=== PATIENT | female | born 2005 | race Caucasian/White ===

== ENCOUNTER 2023-01-17 00:03 | Emergency (ER) | payer OTHER, SELFPAY ==
--- NOTE | 2023-01-17 00:06 | ED.GENADUL1 ---
HPI - General Adult General Chief complaint: Psychiatric Symptoms Stated complaint: SUICIDAL Time Seen by Provider: 01/17/23 00:06 History of Present Illness HPI narrative: Patient brought into the emergency department by police with a concern of suicidal ideation. Patient states she lives at home with her father and girlfriend. She was arguing with the girlfriend and some point but girlfriend stated that the patient had made suicide, and and somebody called the police at the patient herself does not know who called. She states she does not have a history of depression and she is not suicidal. She has never been admitted for any psychiatric reasons. She states today was her birthday. She has been happy all day has not had any issues with depression. Does not know why somebody would make such a statement. She is not sure if she was she was fighting and arguing she could have screamed something but she does not recall any specific threat. Related Data Allergies Allergy/AdvReac Type Severity Reaction Status Date / Time No Known Drug Allergies Allergy Verified 01/17/23 00:13 Review of Systems ROS Status of ROS 10 or more systems reviewed and unremarkable except as noted in history and below [facility] Social History Smoking status: Never smoker Exam Narrative Exam Narrative: Nurses notes and vital signs reviewed and patient is not hypoxic. General: Nontoxic, Well-appearing and in no apparent distress. Skin: Warm, dry, no pallor noted. No Rash Head: Normocephalic, atraumatic. Neck: Supple, non-tender. Eye: Pupils are equal, round and EOMI. No scleral icterus. Ears, Nose, Mouth, and Throat: TM clear, no posterior oropharynx erythema or nasal mucosal hypertrophy, uvula is mid-line Oral mucosa is moist Cardiovascular: Regular Rate and Rhythm without murmur, gallop or rub. Respiratory: No accessory muscle use or respiratory distress. Lungs are clear to auscultation, no wheezing, rales or rhonchi Chest Wall: no tenderness Back: No midline thoracic or lumbar vertebral tenderness. No CVA tenderness Musculoskeletal: normal ROM, no calf or popliteal tenderness, no lower extremity edema/swelling GI: Abdomen is soft, non-distended. Normal bowel sounds. No masses appreciated. No tenderness to palpation. No rebound, guarding, or rigidity noted. Neurological: A&O x4. No cranial nerve dysfunction observed. No truncal ataxia. Moves all extremities. Sensation intact. Psychiatric: Cooperative and interactive. Normal mood and affect. Constitutional Vital Signs, click to edit/add: Last Vital Signs Temp 98.3 F 01/17/23 00:08 Pulse 74 01/17/23 00:08 Resp 16 01/17/23 00:08 BP 98/62 01/17/23 00:08 Pulse Ox 100 01/17/23 00:08 O2 Del Method Room Air 01/17/23 00:08 Course Vital Signs Vital signs: Vital Signs Temperature 98.3 F 01/17/23 00:08 Pulse Rate 74 01/17/23 00:08 Respiratory Rate 16 01/17/23 00:08 Blood Pressure 98/62 01/17/23 00:08 Pulse Oximetry 100 01/17/23 00:08 Oxygen Delivery Method Room Air 01/17/23 00:08 Temperature 98.3 F 01/17/23 00:08 Pulse Rate 74 01/17/23 00:08 Respiratory Rate 16 01/17/23 00:08 Blood Pressure 98/62 01/17/23 00:08 Pulse Oximetry 100 01/17/23 00:08 Oxygen Delivery Method Room Air 01/17/23 00:08 Medical Decision Making MDM Narrative Medical decision making narrative: Patient does not have any impairment. She's awake alert oriented ?4. She is in good spirits. She denies any suicide, homicide ideation. Patient is cooperative and will speak to [facility]. Patient was evaluated by [facility]. they made a safety plan for the pt. the pt will be discharged home with her mother. they will talk to the mother 1st thing in the morning. Patient is not actively suicidal, homicidal. I cannot hold her here against her will. At this time the patient is without objective evidence of an acute process requiring hospitalization or inpatient management. The patient has remained hemodynamically stable. No additional indication for emergent studies at this time. I answered all questions. Discussed discharge instructions including standard anticipatory guidance and what should prompt a return to the emergency department, including if they get worse are not getting better or develops any new or concerning symptoms. I've given them specific time frame in which to follow-up, and who to follow-up with. The patient demonstrates understanding. Patient is nontoxic and stable for discharge with outpatient follow-up. This note was created with the assistance of a speech recognition program. Although the intention is to generate documents that actually reflects the content of the visit, no guarantees can be provided that every mistake has been identified and corrected by editing. ECG Data Attestation: I personally reviewed and interpreted this ECG as follows: Discharge Plan Discharge Chief Complaint: Psychiatric Symptoms Clinical Impression: Mental health-related complaint Patient Disposition: Home, Self-Care Time of Disposition Decision: 00:57 Condition: Good Mode of Transportation: Private Vehicle Instructions: Stress (ED), Help Prevent Suicide (ED) Stand Alone Forms: Portal Instructions Referrals: Physician,Non-Staff, MD [Primary Care Provider] - 1 week Discharge Date/Time: 01/17/23 01:13
[2023-01-17 00:08] VITALS: BP 98/62; PULSE 74; RESP 16; TEMP 36.8; O2SAT 100; BMI 55.3
[2023-01-17 00:27] VITALS: PULSE 68
--- NOTE | 2023-01-17 09:41 | ECG_ITS ---
The 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
== END 2023-01-17 01:13 | disposition home or self-care (01) ==
PROVIDERS: Emergency Provider Emergency Medicine
DX: R45.851 Suicidal ideations (principal); F99 Mental disorder, not otherwise specified
CPT/HCPCS: 93005; 99283

== ENCOUNTER 2023-02-15 20:18 | Emergency (ER) | payer OTHER, SELFPAY ==
[2023-02-15 20:30] VITALS: BP 119/70; PULSE 83; RESP 18; TEMP 37.1; O2SAT 99; BMI 25.5
--- NOTE | 2023-02-15 20:35 | XR_ITS ---
The [address] [address] Patient Name: GAVI HOLLIS MRN: [id number] date: 2005 Sex: F Assigned Patient Location: ER Current Patient Location: ER Accession/Order Number: [id number] Exam Date: 02/15/2023 20:48 Report Date: 02/15/2023 21:21 At the request of: JAVIER TRUONG Procedure: XR hip RT min 2V EXAM: XR hip RT min 2V HISTORY: Hip pain COMPARISON: None. TECHNIQUE: 2 views FINDINGS: No osseous lesion, fracture, dislocation or subluxation. Joint spaces are normal. No visualized effusion. No visualized soft tissue edema. XR/XR hip RT min 2V IMPRESSION: Normal x-rays Electronically authenticated by: RONALD BARNARD Date: 02/15/2023 21:21
--- NOTE | 2023-02-15 21:31 | ED.LOWEXI1 ---
HPI - Extremity Injury (Lower) General Chief Complaint: Extremity Injury, Lower Stated Complaint: Hip pain Time Seen by Provider: 02/15/23 20:51 Source: patient Mode of arrival: Wheelchair Limitations: no limitations History of Present Illness HPI Narrative: patient is a 18-year-old female who presents to the emergency department for the evaluation of right hip pain that has been present for the last two months. Patient denies any specific mechanism of trauma or injury initially but states since her hip started hurting, she had a football injury where she fell on her right hip and also bumped her hip into a wall. She is able to ambulate but states her pain was more significant today. She is not concerned for . No medications taken prior to arrival. She has no pain to the right knee or ankle. She has not seen any providers for these complaints previously. Related Data Previous Rx's Medication Instructions Recorded ketorolac 10 mg tablet 10 mg PO TID PRN pain #10 tabs 02/15/23 methocarbamol 750 mg tablet 750 mg PO TID PRN pain #20 tabs 02/15/23 methylprednisolone 4 mg tablets in See Rx Instructions .Route 02/15/23 a dose pack (Medrol (Dilip)) .COMPLEX #21 ea Allergies Allergy/AdvReac Type Severity Reaction Status Date / Time No Known Drug Allergies Allergy Verified 01/17/23 00:13 Review of Systems ROS Constitutional Denies: fever or chills Ears, nose, mouth, and throat Denies: throat pain or hoarseness Respiratory Denies: shortness of breath or cough Gastrointestinal Denies: abdominal pain, nausea or vomiting Musculoskeletal Reports: extremity pain; Denies: back pain or neck pain Integumentary/Breast Denies: rash Neurological Denies: headache Allergic/Immunologic Denies: hives [facility] Social History Smoking status: Never smoker Exam Narrative Exam Narrative: Gen.: Awake, alert, in no distress Head: Normocephalic, atraumatic ENT: Moist mucous membranes Respiratory: No respiratory distress Gastrointestinal: Abdomen is soft, nondistended and nontender to palpation Extremities: mild tenderness to palpation of the right lateral hip, no obvious deformity, pelvis is stable. No bony tenderness of the right knee or right ankle. Patient is able to flex at the right hip. No internal or external rotation of the hip noted Psych: Normal mood and affect Neuro: No focal neuro deficit Skin: Warm, dry, intact Constitutional Vital Signs, click to edit/add: Last Vital Signs Temp 98.7 F 02/15/23 20:30 Pulse 83 02/15/23 20:30 Resp 18 02/15/23 20:30 BP 119/70 02/15/23 20:30 Pulse Ox 99 02/15/23 20:30 O2 Del Method Room Air 02/15/23 20:30 Course Vital Signs Vital signs: Vital Signs Temperature 98.7 F 02/15/23 20:30 Pulse Rate 83 02/15/23 20:30 Respiratory Rate 18 02/15/23 20:30 Blood Pressure 119/70 02/15/23 20:30 Pulse Oximetry 99 02/15/23 20:30 Oxygen Delivery Method Room Air 02/15/23 20:30 Temperature 98.7 F 02/15/23 20:30 Pulse Rate 83 02/15/23 20:30 Respiratory Rate 18 02/15/23 20:30 Blood Pressure 119/70 02/15/23 20:30 Pulse Oximetry 99 02/15/23 20:30 Oxygen Delivery Method Room Air 02/15/23 20:30 MDM - Extremity Injury (Lower) MDM Narrative Medical decision making narrative: x-rays reviewed by the radiologist with no evidence of acute process. Patient medicated for right hip contusion with ice, NSAIDs, muscle relaxants. Follow-up with PCP and patient is given a referral for orthopedics. Return to the Emergency Room if symptoms change or worsen. Medical Records Attestation: I reviewed the patient's medical records. Imaging Data XR hip: Attestation: I have reviewed the pertinent imaging results. Radiologist's impression: Procedure: XR hip RT min 2V EXAM: XR hip RT min 2V HISTORY: Hip pain COMPARISON: None. TECHNIQUE: 2 views FINDINGS: No osseous lesion, fracture, dislocation or subluxation. Joint spaces are normal. No visualized effusion. No visualized soft tissue edema. IMPRESSION: Normal x-rays Electronically authenticated by: RONALD BARNRAD Date: 02/15/2023 21:21 Discharge Plan Discharge Chief Complaint: Extremity Injury, Lower Clinical Impression: Acute pain of right hip, Contusion of right hip Patient Disposition: Home, Self-Care Time of Disposition Decision: 21:33 Condition: Good Prescriptions / Home Meds: New ketorolac 10 mg tablet 10 mg PO TID PRN (Reason: pain) Qty: 10 0RF methocarbamol 750 mg tablet 750 mg PO TID PRN (Reason: pain) Qty: 20 0RF methylprednisolone [Medrol (Dilip)] 4 mg tablets,dose pack See Rx Instructions .ROUTE .COMPLEX Qty: 21 0RF Rx Instructions: Taper as directed Instructions: Hip Pain (ED), Hip Contusion (ED) Stand Alone Forms: Portal Instructions Referrals: Timur Awad MD [Physician] - 1 week Discharge Date/Time: 02/15/23 22:00
--- NOTE | 2023-02-15 21:38 | PC.NURSE ---
right hip pain since november, recently hit hip against wall and complaining of more pain to area now. pulses and sensation to bilateral lower extremities remain intact.
[2023-02-15] MEDS: KETOROLAC TROMETHAMINE 10 MG TABLET PO (21:53)
== END 2023-02-15 22:00 | disposition home or self-care (01) ==
PROVIDERS: Emergency Provider Internal Medicine
DX: S70.01XA Contusion of right hip, initial encounter (principal); M25.551 Pain in right hip; W19.XXXA Unspecified fall, initial encounter
CPT/HCPCS: 73502; 99284

== ENCOUNTER 2023-04-22 22:25 | Emergency (ER) | payer OTHER, SELFPAY ==
[2023-04-22 22:27] VITALS: BP 154/71; PULSE 115; RESP 18; TEMP 36.9; O2SAT 98; BMI 24.3
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
--- NOTE | 2023-04-22 22:41 | XR_ITS ---
The [address] [address] Patient Name: GAVI HOLLIS MRN: [id number] date: 2005 Sex: F Assigned Patient Location: ER Current Patient Location: ED.MAIN Accession/Order Number: [id number] Exam Date: 04/22/2023 22:55 Report Date: 04/22/2023 23:20 At the request of: JAVIER TRUONG Procedure: XR foot LT min 3V EXAM: XR foot LT min 3V HISTORY: injury COMPARISON: None. TECHNIQUE: 3 views of the left foot were obtained. FINDINGS: No acute fracture or dislocation is seen. The joint spaces are preserved. There is no significant left ankle joint effusion. XR/XR foot LT min 3V IMPRESSION: 1. No acute fracture or dislocation of the left foot is seen. If pain persists, repeat radiographs are recommended in 7-10 days. Electronically authenticated by: Miladis TIAN Date: 04/22/2023 23:20
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
== END 2023-04-22 23:54 | disposition home or self-care (01) ==
PROVIDERS: Emergency Provider Internal Medicine
DX: S96.912A Strain of unspecified muscle and tendon at ankle and foot level, left foot, initial encounter (principal); X58.XXXA Exposure to other specified factors, initial encounter; Y93.55 Activity, bike riding
CPT/HCPCS: 73630; 99283

== ENCOUNTER 2023-07-24 20:16 | Emergency (ER) | payer OTHER, SELFPAY ==
[2023-07-24 20:15] VITALS: BP 139/80; PULSE 77; RESP 16; TEMP 36.8; O2SAT 100; BMI 25.5
--- NOTE | 2023-07-24 20:18 | ECG_ITS ---
The [facility] Test Date: 2023-07-24 Pat Name: GAVI HOLLIS Department: Room: - Gender: Female Supervisor Char House: : 2005 Requested By: [id number] Order Number: [id number] Reading MD: ARON ROBERT Measurements Intervals [place] Rate: 63 P: -50 [place]: 148 QRS: 72 QRSD: 92 T: 48 QT: 400 QTc: 408 Interpretive Statements 1200 Atrial rhythm 9140 abnormal rhythm ECG Compared to ECG 01/17/2023 00:07:47 Sinus rhythm no longer present Electronically Signed On 07-26-2023 6:44:41 EST by ARON ROBERT
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
--- OUTSIDE RECORDS SUMMARY | 2023-07-24 20:20 | XMS_ITS | CCD ---
Author Name Unknown Address [address] [place] [id number] Organization [facility] Care Team Providers Care Traffic Attendant Name Role Phone MARKER, DR VASQUEZ Attending Unavailable MARKER, DR VASQUEZ Admitting Unavailable MISC, DR VIDAL Primary Care Unavailable JAMIE NEWELL Consulting Unavailable Problems Problem Classification Problem Date Documented Da te Episodic/Chronic E Codes: Fall (1 source) Fall on same level from slipping, tripping and stumbling with subsequent striking against other object, initial encounter; Translations: [FALL SAME LVL SLIP STRK OTH OBJ INT] Onset: 10-07-2021 Episodic Other injuries and conditions due to external causes (4 sources) Other specified injuries of head, initial encounter; Translations: [OTH SPEC INJURIES HEAD INITIAL ENC] Onset: 10-05-2021 Episodic Superficial injury; contusion (1 source) Contusion of other part of head, initial encounter; Translations: [CONTUS OTH PRT HEAD INITIAL ENCNTR] Onset: 10-07-2021 Episodic Encounters Encounter Date Encounter Type Care Provider Facility Start: 10-05-2021 End: 10-05-[address] VASQUEZ MARKER Facility: Payers Date Payer Category Payer Unknown [id number] 1961 Unknown [id number] Summary Purpose Family History No Family History Records Found Advance Directives No Advanced Directives Records Found Additional Source Comments INFORMATION SOURCE (unrecogn ized section and content) DATE CREATED AUTHOR 10/08/2021 [facility] FOR RECORDS PERTAINING TO PATIENTS WHO ARE OR HAVE BEEN ENROLLED IN A CHEMICAL DEPENDENCY/SUBSTANCEABUSE PROGRAM, SOME INFORMATION MAY BE OMITTED. This clinical summary was aggregated from multiple sources. Caution should be exercised in using it in the provision of clinical care. This summary normalizes information from multiple sources, and as a consequence, information in this document may materially change the coding, format and clinical context of patient data. In addition, data may be omitted in some cases. CLINICAL DECISIONS SHOULD BE BASED ON THE PRIMARY CLINICAL RECORDS. [facility] [employer] [facility] provides no warranty or guarantee of the accuracy or completeness of information in this document.
[2023-07-24 20:37] LABS: Basophils Percent Auto 0.5 % (0.2-2.0); Eosinophils Absolute Auto 0.1 10^3/uL (0.0-0.7); Eosinophils Percent Auto 1.9 % (0.9-7.0); Hematocrit 40.8 % (36.0-48.0); Hemoglobin 13.3 g/dL (12.0-16.0); Immature Granulocytes Abs Auto 0.01 10^3/uL (0.00-0.03); Immature Granulocytes Pct Auto 0.2 % (0.0-0.5); Lymphocytes Absolute Auto 2.1 10^3/uL (1.2-3.8); Mean Corpuscular HGB Conc 32.6 g/dL (29.9-35.2); Mean Corpuscular Hemoglobin 28.1 pg (26.7-34.0); Mean Corpuscular Volume 86.3 fL (81.0-99.0); Mean Platelet Volume 9.5 fL (9.5-13.5); Monocytes Absolute Auto 0.5 10^3/uL (0.3-0.8); Monocytes Percent Auto 7.8 % (1.7-12.0); Neutrophils Absolute Auto 3.1 10^3/uL (1.4-6.5); Neutrophils Percent Auto 53.6 % (43.0-75.0); Platelet Count 335 10^3/uL (150-450); Red Blood Count 4.73 10^6/uL (4.20-5.40); Red Cell Distribution Width 12.1 % (11.0-15.0); White Blood Count 5.8 10^3/uL (4.0-11.0)
[2023-07-24 20:38] LABS: Bilirubin Urine NEGATIVE (NEGATIVE); Blood Urine NEGATIVE (NEGATIVE); Clarity Urine CLEAR (CLEAR); Color Urine LT. YELLOW (YELLOW); Glucose Urine UA NEGATIVE (NEGATIVE); HCG Qualitative Urine* NEGATIVE (NEGATIVE); Ketones Urine NEGATIVE (NEGATIVE); Leukocyte Esterase Urine MODERATE (NEGATIVE); Nitrite Urine NEGATIVE (NEGATIVE); Protein Urine NEGATIVE (NEG/TRACE); Specific Gravity Urine <=1.005 (1.005-1.025); Urine Microscopic Indicated YES; Urobilinogen Urine 0.2 EU/dL (0.2-1.0)
[2023-07-24 20:44] LABS: RBC Urine 0-2 #/HPF (0-2)
[2023-07-24 20:45] LABS: Bacteria Urine NONE SEEN #/HPF (NONE SEEN); Cast Seen? NONE SEEN #/LPF (NONE SEEN); Crystals Seen? None Seen #/HPF (None Seen); Mucus Urine NONE SEEN (NONE SEEN); Squamous Epithelial Cell Urine FEW #/LPF (NONE/RARE)
[2023-07-24 20:51] LABS: INR 0.98; Prothrombin Time 10.4 sec (9.0-11.6)
[2023-07-24 20:57] LABS: Alanine Aminotransferase 42 U/L (14-59); Albumin Globulin Ratio 1.1; Albumin Level 4.1 g/dL (3.4-5.0); Alkaline Phosphatase 54 U/L (46-116); Anion Gap 10.3; Aspartate Amino Transferase 25 U/L (15-37); BUN Creatinine Ratio 20.5; Bilirubin Total 0.3 mg/dL (0.2-1.0); Carbon Dioxide 28.4 mmol/L (21.0-32.0); Chloride 106 mmol/L (98-107); Estimated GFR (African America >60 (>=60); Estimated GFR (Non-African Ame >60 (>=60); Globulin 3.6 g/dL; Glucose 88 mg/dL (74-106); Potassium 3.7 mmol/L (3.5-5.1); Sodium 141 mmol/L (136-145); Total Protein 7.7 g/dL (6.4-8.2); Troponin I High Sensitivity <4.0 pg/mL (4.0-51.3)
[2023-07-24 21:02] LABS: Thyroid Stimulating Hormone 2.098 uIU/mL (0.358-3.740)
[2023-07-24] MEDS: ONDANSETRON 4 MG RAPDIS TABLET SL (21:08)
[2023-07-24 21:23] VITALS: BP 129/83; PULSE 88; RESP 16; TEMP 36.8; O2SAT 97
== END 2023-07-24 21:25 | disposition home or self-care (01) ==
PROVIDERS: Physician Assistant; Emergency Provider Internal Medicine
DX: N39.0 Urinary tract infection, site not specified (principal); R11.0 Nausea; F17.210 Nicotine dependence, cigarettes, uncomplicated
CPT/HCPCS: 36415; 80053; 81001; 84443; 84484; 84703; 85025; 85610; 93005; 99285; Q0162

== ENCOUNTER 2024-08-05 19:42 | Emergency (ER) | payer OTHER, SELFPAY ==
--- OUTSIDE RECORDS SUMMARY | 2024-08-05 19:49 | XMS_ITS | CCD ---
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 this encounter [facility] Evaluation note Note Date & Type Note Facility Evaluation note Diagnosis Vulvovaginal candidiasis Candidiasis of vulva and vagina documented in this encounter [facility] Instructions Note Date & Type Note Facility Instructions Not on filedocumented in this en counter [facility] Reason for referral (narrative) Consultation (Routine) - Pending Review Note Date & Type Note Facility Reason for referral (narrati ve) Specialty Diagnoses / Procedures Referred By Contac t Referred To Contact Diagnoses Autism spectrum disorder Bipolar 1 disorder with moderate yi (CMS-HCC) Pascale Wolf, DULCE [address] [place] [address] Referral ID Status Reason Start Date Expiration Date V isits Requested Visits Authorized [id number] Pending Review 09/11/2023 09/10/2024 1 1 [facility] Summary Purpose Family History No Family History Records FoundNo Family History Records FoundNo Family History Records Found Advance Directives No Advanced Directives Records FoundNo Advanced Directives Records FoundNo Advanced Directives Records Found Additional Source Comments INFORMATION SOURCE (unrecogn ized section and content) DATE CREATED AUTHOR 10/08/2021 [facility] DATE CREATED AUTHOR AUTHOR'S ORGANIZ ATION 02/23/2024 [facility] DATE CREATED AUTHOR AUTHOR'S ORGANIZ ATION 07/07/2024 [facility] Reason for Visit (unrecogniz ed section and content) Reason Comments New Patient Care Teams (unrecognized sec tion and content) Institutional Custodian Relationship Specialty Start Date End Date Colleen Khan MD PCP - General Pediatrics 08/19/11 FOR RECORDS PERTAINING TO PATIENTS WHO ARE [...] BE BASED ON THE PRIMARY CLINICAL RECORDS. [facility]. provides no warranty or guarantee of the accuracy or completeness of information in this document.
[2024-08-05 19:57] VITALS: BP 125/81; PULSE 89; TEMP 36.8; O2SAT 99; BMI 30.7
--- NOTE | 2024-08-05 20:01 | XR_ITS ---
The [address] [address] Patient Name: GAVI HOLLIS MRN: [id number] date: 2005 Sex: F Assigned Patient Location: ED.MAIN Current Patient Location: Accession/Order Number: [id number] Exam Date: 08/05/2024 20:50 Report Date: 08/05/2024 22:48 At the request of: ROXANA KUMARI Procedure: XR sacrum coccyx min 2V EXAM: XR sacrum coccyx min 2V HISTORY: fall COMPARISON: None. TECHNIQUE: 4 views of the sacrum and coccyx were obtained. FINDINGS: On the lateral view, there is offset of the lower sacrum that could represent an acute fracture. The sacroiliac joints are patent. XR/XR sacrum coccyx min 2V IMPRESSION: 1. Offset of the lower sacrum that could represent an acute fracture. Please correlate for point tenderness, and consider further evaluation with CT as clinically indicated. Electronically authenticated by: Miladis TIAN Date: 08/05/2024 22:48
--- NOTE | 2024-08-05 20:01 | XR_ITS ---
The [address] [address] Patient Name: GAVI HLOLIS MRN: [id number] date: 2005 Sex: F Assigned Patient Location: ED.MAIN Current Patient Location: Accession/Order Number: [id number] Exam Date: 08/05/2024 20:50 Report Date: 08/05/2024 22:48 At the request of: ROXANA KUMARI Procedure: XR ankle RT min 3V HISTORY: fall COMPARISON: There are no previous studies available for comparison. TECHNIQUE: 3 views of the right ankle. FINDINGS: BONE DENSITY: Normal. JOINTS: No acute abnormality. FRACTURE: No acute fracture. DISLOCATION: None. SOFT TISSUES: No radiopaque foreign body. XR/XR ankle RT min 3V IMPRESSION: No acute osseous or joint abnormality. Electronically authenticated by: JT LAMAS Date: 08/05/2024 22:48
== END 2024-08-05 21:44 | disposition left against medical advice (07) ==
PROVIDERS: Emergency Provider Emergency Medicine
DX: Z53.21 Procedure and treatment not carried out due to patient leaving prior to being seen by health care provider (principal); M53.3 Sacrococcygeal disorders, not elsewhere classified
CPT/HCPCS: 72220; 73610; 99281; 99284

== ENCOUNTER 2024-12-21 18:06 | Emergency (ER) | payer OTHER, SELFPAY ==
--- OUTSIDE RECORDS SUMMARY | 2023-07-27 05:45 | XMS_ITS ---
Author Organization [facility] [place] Address [address] [place] [address] Care Team Providers Care Medical Coder Name Role Phone ISAIAH SILVERIO CNP Primary Care Provider [phone] ISAIAH SILVERIO [phone] REASON FOR VISIT [facility] [place] no medication Encounters Encounter Location Date Provider Diagnosis [facility] [address] [place] [address] 07/27/2023 ISAIAH SILVERIO Plan Of Treatment No Information Progress Notes * Sherri MATA SDOB:[birth year] (19 yo F)Acc No.[id number]:07/27/2023 UNLOCKED PROGRESS NOTE New Patient Patient: Sherri CERNA Provider: Jairon Silverio CNP :2005 A ge:18 Y S ex:Female Date:07/27/2023 Address:[address] [facility] Pcp:ISAIAH SILVERIO CNP Subjective: * Chief Complaints: * 1 . [facility] [place] no medication. * Medical History: Objective: * Vitals: Assessment: Plan: * Treatment: * * Electronic signature of KYLAH ANDERSON NP on 12/21/2024 at 06:13 PM EDT Sign off status: Pending Visit Status: C ANC (Cancelled) * Provider: Jairon Silverio CNP Date: 0 07/27/2023 Generated for Printi ng/Faxing/eTransmitting on: 0 12/21/2024 06:13 PM EDT
[2024-12-21 18:11] VITALS: BP 128/96; PULSE 72; TEMP 37.4; O2SAT 99; BMI 29.5
--- OUTSIDE RECORDS SUMMARY | 2024-12-21 18:13 | XMS_ITS | Clinical Summary ---
Author Organization [employer] [facility] Address [id number] [address] 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 Name Role Phone Unavailable Primary Care Provider Unavailabl e Allergies No known active allergies Medications No known medications Active Problems Problem Noted Date Diagnosed Date Autism spectrum 09/11/2023 Family History Medical History Relation Name Comments Mental illness Father Anemia Mother Relation Name Status Comments Father Mother Social History Tobacco Use Types Packs/Day Years Used Date Smoking Tobacco: Never Smokeless Tobacco: Never Alcohol Use Standard Drinks/Week Comments Never 0 (1 standard drink = 0.6 oz pur e alcohol) PHQ-2 Answer Date Recorded Total Score 0 09/11/2023 Hunger Screening Answer Date Recorded Within the past 12 months we worried whether our food would run out before we got money to buy more. Never True 09/11/2023 Within the past 12 months th e food we bought just didn't last and we didn't have money to get more. Never True 09/11/2023 Comments Unknown Sex and Gender Information Value Date Recorded Sex Assigned at Not on file Legal Sex Female 12:31 PM EDT Gender Identity Not on file Sexual Orientation Not on file Last Filed Vital Signs Vital Sign Reading Time Taken Comments Blood Pressure 98/58 09/11/2023 10:13 AM EDT Pulse 83 09/11/2023 10:13 AM EDT Temperature 36.8 C (98.3 F) 09/11/2023 10:13 AM EDT Respiratory Rate - - Oxygen Saturation 100% 09/11/2023 10: 13 AM EDT Inhaled Oxygen Concentration - - Weight 85.2 kg (187 lb 12.8 oz) 024 10:13 AM EDT Height 172.1 cm (5' 7.76 ) 09/11/2023 1 0:13 AM EDT Body Mass Index 28.76 09/11/2023 10:13 AM EDT Plan of Treatment Health Maintenance Due Date Last Done Comments Chlamydia Screening 2005 DTaP,Tdap and Td Vaccines (1 - Tdap) 2022 Pap Smear 01/17/2024 Adult BMI Screening 09/10/2024 09/11/2023 Depression Screening 09/10/2024 09/11/2023 Tobacco Screening 09/10/2024 09/11/2023 Influenza Vaccine 02/24/2025 Medical Devices Not on file Insurance [employer] Member Subscriber Plan / Payer (Ef fective 2022-Present) Name:Sherri Mata Relation to Subscriber:Child Name:TOBIAS MATA Date of :1984 Address: [address] [place] [id number] Payer ID:Not on file Type:Not on file Address: [facility] [address] [id number]
--- OUTSIDE RECORDS SUMMARY | 2024-12-21 18:13 | XMS_ITS | Encounter Summary ---
Author Organization [employer] [facility] tem Address [id number] [address] 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 Name Role Phone [facility]ascale Wolf [facility] Primary Care Provider Encounter Details Date Type Department Care Team (Late st Contact Info) Description 10/31/2023 Orders Only [facility] Internal Medicine - Family Medicine [address] [place] [address] Pascale Wolf, MEMBERSHIP SALES ADVISOR-HR DIRECTOR [address] [facility] [address] [facility] [address] [address] [place], [place] [id number] Autism spectrum disorder; Bipolar 1 disorder with moderate yi (CMS-HCC) Social History Tobacco Use Types Packs/Day Years [...] on file Sexual Orientation Not on file documented as of this encounter Plan of Treatment Not on file documented as of this encounter Procedures Procedure Name Priority Date/Time Associated Diagnosis Comments AMB REFERRAL TO MENTAL HEALTH COUNSELOR Routine 10/31/2023 9:17 AM EDT Autism spectrum disorder Bipolar 1 disorder with moderate yi (CMS-HCC) documented in this encounter Results * Ambulatory referral to Mental Health Counselor ([facility]) (10/31/2023 9:17 AM EDT) Pascale CARDONA OUTPATIENT REFERRAL ORDERAB LES Final Result MANUALLY TRANSCRIBED RESULTS documented in this encounter Visit Diagnoses Diagnosis Autism spectrum disorder Autistic disorder, current or active state Bipolar 1 disorder with moderate yi ([facility]) documented in this encounter Additional Health Concerns Assessment Noted Time PHQ-9 Depression Total Score: 0 09/11/19 10:05 AM EDT documented as of this encounter Care Teams Wire Mill Operator Relationship Specialty Start Date End Date Pascale Wolf APRN-FNP [address] RETIRED 12/25/2023 [place] [address] PCP - General Internal Medicine 09/12/23 12/22/23 documented as of this encounter
--- OUTSIDE RECORDS SUMMARY | 2024-12-21 18:13 | XMS_ITS | CCD ---
Author Organization [facility] Inform ion Partnership [facility] Care Team Providers Care Utility Driver Name Role Phone MARKER, DR VASQUEZ Attending Unavailable MARKER, DR VASQUEZ Admitting Unavailable MISC, DR VIDAL Primary Care Unavailable JAMIE NEWELL Consulting Unavailable Milo Narvaez Attending Unavailab Milo Garcia Admitting Unavailab Colleen Martinez MD Primary Care Provider Unavailable Primary Care Provider Unavailabl e JARED SRINIVASAN Referring Unavailable COLLEEN KHAN Primary Care Unavailable JARED SRINIVASAN Referring Unavailable COLLEEN KHAN Primary Care Unavailable JARED SRINIVASAN Referring Unavailable COLLEEN KHAN Primary Care Unavailable Medications Current Medications Medication Drug Class(es) Dates Sig (Normalized) Sig (Original) Ethinyl Estradiol / Ferrous fumarate / Norethindrone (2 sources) Estrogen Start: 07-01-2024 take 1 tablet by [...] Documented Date Episodic/Chronic Acute and chronic tonsillitis (4 sources) Chronic adenotonsillitis; Translations: [Chronic tonsillitis and adenoiditis] Onset: 08-19-2011 Resolved: 08-19-2011 02-15-2012 Chronic Anxiety disorders (4 sources) Chronic anxiety; Translations: [Anxiety disorder, unspecified] Onset: 08-19-2011 08-19-2011 Chronic Attention-deficit, conduct, and disruptive behavior disorders (2 sources) Attention deficit hyperactivity disorder; Translations: [Attention-deficit hyperactivity [...] 10-07-2021 Episodic Genitourinary symptoms and ill-defined conditions (2 sources) Daytime enuresis; Translations: [Unspecified urinary incontinence] Onset: 08-19-2011 08-19-2011 Chronic Immunizations and screening for infectious disease (2 sources) Patient encounter status; Translations: [Encounter for screening for infections with a predominantly sexual mode of transmission] Onset: 11-11-2024 11-11-2024 Episodic Mood disorders (1 source) Moderate manic bipolar [...] Date Documented Date Episodic/Chronic Administrative/socia l admission (2 sources) Academic underachievement disorder; Translations: [Underachievement in school] Onset: 12-22-2014 12-22-2014 Episodic Attention-deficit, conduct, and disruptive behavior disorders (2 sources) Problem behavior; Translations: [Other symptoms and signs involving appearance and behavior] Onset: 12-22-2014 12-22-2014 Episodic Mood disorders (1 source) Mood disorders Onset: 09-11-2023 09-11-2023 Other female genital disorders (1 source) Other specified noninflammatory disorders of vagina; Translations: [Other specified noninflammatory disorders of vagina] Onset: 03-25-2024 Episodic Other nutritional; endocrine; and metabolic disorders (2 sources) Developmental delay; Translations: [Unspecified lack of expected normal physiological development in childhood] Onset: 12-22-2014 12-22-2014 Episodic Other screening for suspected conditions (not mental disorders or infectious disease) (1 source) Encounter for screening for malignant neoplasm of cervix; Translations: [Encounter for screening for malignant neoplasm of cervix] Onset: 03-25-2024 Episodic Residual codes; unclassified (2 sources) History of clinical finding in subject; Translations: [Personal history of other specified conditions] Onset: 12-22-2014 12-22-2014 Episodic Screening and history of mental health and substance abuse codes (2 sources) H/O: psychiatric disorder; Translations: [Personal history of other mental and behavioral disorders] Onset: 12-22-2014 12-22-2014 Episodic Results Test Name Value Interpretation Reference Range Facil ity Chlamydia/GC,DNA Ampon 11-12 Chlamydia Probe Negative Normal NEG [facility] Comment on above: Result Comment: CHLA [...] nucleic acid target. Performed By: #### S [facility] #### [facility] [address] [place] [address] Property Utilization Officer: Braeden Estrada MD Gonorrhea Probe Negative Normal NEG [facility] Comment on above: Result Comment: NEIS SERIA [...] target. Performed By: #### S [facility] #### [address] [address] Property Utilization Officer: Braeden Estrada MD HIV Ag/Abon 11-12-2024 HIV Ag/Ab Non-Reactive Normal [facility] Comment on above: Result Comment: No l aboratory evidence of HIV infection. If acute HIV infection is suspected, consider testing for HIV-1 RNA. Performed By: #### T REP, HIVCMB, AHCV #### [address] [address] Property Utilization Officer: Braeden Estrada MD HIV Screenon 11-12-2024 HIV 1+2 Ab+HIV1 p24 Ag IA Ql Non-Reactive NONREACTIVE [facility] Comment on above: No laboratory eviden ce of HIV infection. If acute HIV infection is suspected, consider testing for HIV-1 RNA. [facility] Vaginitis DNA Probeon 2024 Roman Negative Normal [facility] Comment on above: Result Comment: for Roman sp. Method of testing is a DNA probe intended for detection and identification of Roman species, Gardnerella vaginalis, and Trichomonas vaginalis nucleic acid in vaginal fluid specimens from patients with symptoms of vaginitis/vaginosis. Performed By: #### V AGP #### [address] [address] Property Utilization Officer: Braeden Estrada MD [facility] [address] [place] [address] [place] [address] Property Utilization Officer: Ector Santiago MD Gardnerella Positive Abnormal [facility] Comment on above: Result Comment: for Gardnerella vaginalis Performed By: #### V AGP #### [facility] [address] [place] [address] Property Utilization Officer: Braeden Estrada MD [facility] [address] [place], [place] [id number] Property Utilization Officer: Ector Santiago MD Trichomonas Negative Normal [facility] Comment on above: Result Comment: for Trichomonas Vaginalis Performed By: #### V AGP #### [facility] [address] [place] [address] Property Utilization Officer: Braeden Estrada MD [facility] [address] [place], [place] [id number] Property Utilization Officer: Ector Santiago MD Hep C Abon 11-11-2024 Hep C Ab Non-Reactive Normal NR [facility] Comment on above: Result Comment: The hepatitis C procedure used in our laboratory is a Chemiluminescent test specific for three recombinant HCV antigens. A negative anti-HCV result indicates that the antibodies to hepatitis C virus are not present at this time. Individuals with reactive anti-HCV should be considered infected and infectious until proven otherwise. Confirmation of all equivocal or reactive results is recommended by ordering HCV RNA by PCR. Performed By: #### T REP, HIVCMB, AHCV #### [facility] [address] [place] [address] Property Utilization Officer: Braeden Estrada MD Hepatitis C Antibodyon 11-11 HCV Ab IA Ql Non-Reactive NONREACTIVE [facility] Comment on above: The hepatitis C procedure used in our laboratory is a Chemiluminescent test specific for three recombinant HCV antigens. A negative anti-HCV result indicates that the antibodies to hepatitis C virus are not present at this time. Individuals with reactive anti-HCV should be considered infected and infectious until proven otherwise. Confirmation of all equivocal or reactive results is recommended by ordering HCV RNA by PCR. No Panel Informationon 11-11 [facility] T. pallidum Abon 11-11-2024 T. pallidum Ab IA Ql (S) Non-Reactive NONREACTIVE [facility] Comment on above: T. pallidum antibodies are not detected. There is no serological evidence of infection with T. pallidum (early primary syphilis cannot be excluded). Retest in 2-4 weeks if syphilis is clinically suspect. T.pallidum Ab Screenon 11-11 T.pallidum Ab Screen Non-Reactive Normal NR [facility] Comment on above: Result Comment: T. pallidum antibodies are not detected. There is no serological evidence of infection with T. pallidum (early primary syphilis cannot be excluded). Retest in 2-4 weeks if syphilis is clinically suspect. Performed By: #### T REP, HIVCMB, AHCV #### [id number] [place], [place] [id number] Property Utilization Officer: Braeden Estrada MD Vaginitis DNA Probeon 2024 Source .VAGINAL SWAB Normal [facility] Comment on above: Performed By: #### V AGP #### [id number] [place] [address] Property Utilization Officer: Braeden Estrada MD [facility] [address] [place] [address] [place] [address] Property Utilization Officer: Ector Santiago MD Vaginitis DNA Probeon 2024 Roman species Positive Abnormal NEGATIVE [facility] Comment on above: for Roman sp. Method of testing is a DNA probe intended for detection and identification of Roman species, Gardnerella vaginalis, and Trichomonas vaginalis nucleic acid in vaginal fluid specimens from patients with symptoms of vaginitis/vaginosis. GARDNERELLA VAGINALIS Positive Abnormal NEGATIVE [facility] Comment on above: for Gardnerella vagi nalis Interpretation and review of laboratory results Abnormal [facility] Source .VAGINAL SWAB [facility] Trichomonas Negative NEGATIVE [facility] Comment on above: for Trichomonas Vagi nalis [facility] Roman Positive Abnormal NEG [facility] Comment on above: Result Comment: for Roman sp. Method of testing is a DNA probe intended for detection and identification of Roman species, Gardnerella vaginalis, and Trichomonas vaginalis nucleic acid in vaginal fluid specimens from patients with symptoms of vaginitis/vaginosis. Performed By: #### V AGP #### [facility] [address] [place] [address] Property Utilization Officer: Braeden Estrada MD [facility] [address] [place] [address] [address] [place], [place] [id number] Property Utilization Officer: Ector Santiago MD Gardnerella Positive Abnormal [facility] Comment on above: Result Comment: for Gardnerella vaginalis Performed By: #### V AGP #### [address] [address] Property Utilization Officer: Braeden Estrada MD [facility] [address] [place] [address] [address]. [place], [place] [id number] Property Utilization Officer: Ector Santiago MD Trichomonas Negative Normal [facility] Comment on above: Result Comment: for Trichomonas Vaginalis Performed By: #### V AGP #### [address] [address] Property Utilization Officer: Braeden Estrada MD [facility] [address] [place] [address] [place] [address] Property Utilization Officer: Ector Santiago MD Source .VAGINAL SWAB [facility] Comment on above: Performed By: #### V AGP #### [address] [address] Property Utilization Officer: Braeden Estrada MD [facility] [address] [place] [address] [place] [address] Property Utilization Officer: Ector Santiago MD Vaginitis DNA Probeon 2023 Roman Negative [facility] Comment on above: Result Comment: for Roman sp. Method of testing is a DNA probe intended for detection and identification of Roman species, Gardnerella vaginalis, and Trichomonas vaginalis nucleic acid in vaginal fluid specimens from patients with symptoms of vaginitis/vaginosis. Performed By: #### V AGP #### [facility] [address] [place] [address] Property Utilization Officer: Braeden Estrada MD [facility] [address] [place] [address] [place] [address] Property Utilization Officer: Ector Santiago MD Gardnerella Positive Abnormal NEG [facility] Comment on above: Result Comment: for Gardnerella vaginalis Performed By: #### V AGP #### [facility] [address] [place] [address] Property Utilization Officer: Braeden Estrada MD [facility] [address] [place] [address] [place] [address] Property Utilization Officer: Ector Santiago MD Trichomonas Negative Normal [facility] Comment on above: Result Comment: for Trichomonas Vaginalis Performed By: #### V AGP #### [address] [place] [address] Property Utilization Officer: rBaeden Estrada MD [facility] [address] [place] [address] [place] [address] Property Utilization Officer: Ector Santiago MD Cytology Reporton 03-25-2024 Cytology report Cyto stain.thin prep Doc (Cvx/Vag) (NOTE) Path Number: [id number] DIAGNOSIS Imaged ThinPrep Pap - Cervical (1 [...] for malignant neoplasm of cervix Processing Lab: [id number] [place] [address] Interpretation performed at [address] [address] This Pap Test has been evaluated with the assistance of the BumpTopPreYunait Pap Test Imaging System. The Pap smear is a screening test primarily for squamous epithelial lesions, which is subject to both false negative and false positive results. Your patient should be reminded to consult you immediately if she experiences any suspicious signs or symptoms, regardless of her Pap smear result. GYNECOLOGIC CYTOLOGY REPORT Patient Name: SHERRI MATA [facility] Rec: [id number] [facility] ANATOMIC PATHOLOGY [address] [place] [address]. [place], [place] [address] Normal [facility] Vaginitis DNA Probeon 2023 Source .VAGINAL SWAB Normal [facility] Comment on above: Performed By: #### V AGP #### [address] [address] Property Utilization Officer: Braeden Estrada MD [facility] [address] [place] [address] [place] [address] Property Utilization Officer: Ector Santiago MD Vital Signs Date Time Vital Sign Value Performing Clinician Facility 09-11-2023 10: Body height 172.1 cm Pascale Maryann CARDONA Work Phone: [facility] 09-11-2023 10:13040 Body mass index (BMI) [Ratio] 28.76 kg/m2 Pascale CARDONA Work Phone: [facility] 09-11-2023 10:13040 Body temperature 98.29 [degF] Pascale Maryann DELACRUZ-MEDIA CLERK Work Phone: [facility] 09-11-2023 10: Body weight 85.19 kg Pascale Wolf APRN-MEDIA CLERK Work Phone: [facility] 09-11-2023 10:13040 Diastolic blood pressure 58 mm[Hg] Pascale Wolf APRN-KRISSY Work Phone: [facility] 09-11-2023 10:13-0400 Heart rate 83 /min Pascale Wolf RN PRIOR AUTHORIZATION-MEDIA CLERK Work Phone: [facility] 09-11-2023 10:13-0400 SaO2% (BldA) [Mass fraction] 100 % Pascale Wolf RN PRIOR AUTHORIZATION-MEDIA CLERK Work Phone: [facility] 09-11-2023 10:13-0400 Systolic blood pressure 98 mm[Hg] Pascale Wolf RN PRIOR AUTHORIZATION-MEDIA CLERK Work Phone: [facility] Encounters Encounter Date Encounter Type Care Provider Facility Start: 11-11-2024 End: 11-11-2024 ambulatory [facility] Start: 11-11-2024 End: 11-11-2024 Subsequent hospital visit by physician Colleen Khan MD Work Phone: [facility] Comment on above: Routine screening fo r STI (sexually transmitted infection) Start: 07-01-2024 End: 07-01-2024 [facility] Start: 07-01-2024 End: 07-01-2024 Subsequent hospital visit by physician Colleen Khan MD Work Phone: [facility] Comment on above: Vulvovaginal candidi asis Start: 03-25-2024 End: 03-25-2024 ambulatory [facility] Start: 11-30-2023 ambulatory Milo Herbert acility:[facility] Start: 09-11-2023 End: 09-11-2023 Initial preventive medicine new pt age 18-39yrs Pascale Wolf RN PRIOR AUTHORIZATION-MEDIA CLERK Work Phone: [facility] - Family [facility] Comment on above: Autism spectrum diso rder (Primary Dx); Bipolar 1 disorder with moderate yi ([facility]) Start: 10-05-2021 End: 10-05-[address] VASQUEZ MARKER Facility:[facility]1 Procedures Date Procedure Procedure Detail Performing Clinician Start: 11-11-2024 Antibody hiv-1&hiv-2 single result Jared Srinivasan RN PRIOR AUTHORIZATION - CNM Work Phone: Start: 11-11-2024 Iadna multiple organ isms amplified probe tq Jared Srinivasan APRN - CN Work Phone: Start: 11-11-2024 T. PALLIDUM AB Jared Srinivasan RN PRIOR AUTHORIZATION - CN Work Phone: Start: 07-01-2024 Iadna roman specie s direct probe tq Jared Srinivasan RN PRIOR AUTHORIZATION - CN Work Phone: Start: 03-25-2024 Microscopic observat ion [Identifier] in Cervix by Cyto stain Colleen Khan MD Work Phone: Start: 09-11-2023 Adult depression scr eening assessment Pascale Wolf RN PRIOR AUTHORIZATION-MEDIA CLERK Work Phone: Plan of Treatment Date Care Activity Detail Author Start: 03-25-2027 Screening for malign ant neoplasm of cervix Pap smear [facility] [employer] Start: 11-11-2025 Screening for Chlamy loly trachomatis [facility]lamydia[facility] Start: 07-01-2025 [facility] Screen [facility] Start: 03-31-2025 End: 03-31-2025 Patient encounter procedure 03/31/2025 10:45 AM EDT Office Visit [facility] [place] [address] Jared Srinivasan, [place] [address] yearly [facility] Comment on above: yearly Start: 01-24-2025 Influenza vaccination Flu vacc ine (Season Ended) [facility] Start: 09-10-2024 Adult [facility]ening [facility] Start: 09-10-2024 Depression Screening Depression Scre ening [facility] [employer] [facility] Start: 09-10-2024 Tobacco Screening Tobacco Screening [facility] [employer] [facility] Start: 07-31-2024 Screening for Chlamy loly trachomatis Chlamydia/GC screen [facility] Start: 02-25-2024 COVID-19 Vaccine ( season) COVID-19 Vaccine ( season) [facility] Start: 02-25-2024 COVID-19 Vaccine ( season) COVID-19 Vaccine ( season) [facility] Start: 01-25-2024 Influenza vaccination Flu vaccine (# 1) [facility] Start: 09-24-2023 Influenza vaccination Influenza Vacc ine [facility] Comment on above: Postponed from 02/24 (Patient Refused) Start: 2022 DTaP,Tdap and Td Vaccines (1 - Tdap) DTaP,Tdap and Td Vaccines (1 - Tdap) [facility] Start: 2021 Adult BMI Follow Up Plan Adult BMI Follow Up Plan [facility] Start: 2021 Hepatitis C screening Hepatitis C sc reen [facility] Start: 2019 Meningococcal B vacc ine (1 of 2 - Standard) Meningococcal B vaccine (1 of 2 - Standard) [facility] Start: 2018 HIV screening HIV screen [facility] Start: 2018 HPV vaccine (1 - 3-d ose series) HPV vaccine (1 - 3-dose series) [facility] Start: 01-17-2016 Varicella vaccine (1 of 2 - 13+ 2-dose series) Varicella vaccine (1 of 2 - 13+ 2-dose series) [facility] Start: 2014 DTaP/Tdap/Td vaccine (5 - Tdap) DTaP/Tdap/Td vaccine (5 - Tdap) [facility] Start: 04-22-2004 Hepatitis B vaccine (3 of 3 - 3-dose series) Hepatitis B vaccine (3 of 3 - 3-dose series) [facility] Start: 2003 Screening for Chlamy loly trachomatis Chlamydia Screening [facility] C.trachomatis N.gonorrhoeae DNA C.trachomatis N.gonorrhoeae DNA Microbiology Routine Routine screening for STI (sexually transmitted infection) 11/11/2024 4:13 PM EDT [facility] End: 11-11-2024 Vaginitis DNA Probe [facility] Comment on above: 1 Occurrences starti ng 11/11/2024 until 11/11/2024 Immunizations Immunization Date Immunization Notes Care Provider Monique eastman 05-12-2005 diphtheria, tetanus toxoids and acellular pertussis vaccine Colleen Khan MD Work Phone: [facility] 05-12-2005 poliovirus vaccine, inactivated Colleen Khan MD Work Phone: [facility] 07-01-2004 pneumococcal conjuga te vaccine, 13 valent Colleen Khan MD Work Phone: [facility] 02-26-2004 diphtheria, tetanus toxoids and acellular pertussis vaccine Colleen Khan MD Work Phone: [facility] 02-26-2004 hepatitis B vaccine, unspecified formulation Colleen Khan MD Work Phone: [facility] 02-26-2004 pneumococcal conjuga te vaccine, 13 valent Colleen Khan MD Work Phone: [facility] 02-26-2004 poliovirus vaccine, inactivated Colleen Khan MD Work Phone: [facility] 2003 diphtheria, tetanus toxoids and acellular pertussis vaccine Colleen Khan MD Work Phone: [facility] 2003 pneumococcal conjuga te vaccine, 13 valent Colleen Khan MD Work Phone: [facility] 2003 poliovirus vaccine, inactivated Colleen Khan MD Work Phone: [facility] 2003 diphtheria, tetanus toxoids and acellular pertussis vaccine Colleen Khan MD Work Phone: [facility] 2003 hepatitis B vaccine, unspecified formulation Colleen Khan MD Work Phone: [facility] 2003 pneumococcal conjuga te vaccine, 13 valent Colleen Khan MD Work Phone: [facility] 2003 poliovirus vaccine, inactivated Colleen Khan MD Work Phone: [facility] Payers Date Payer Category Payer Self-pay 2022 Unknown [employer] Carla PEREZ [id number] 2022-Present [phone] [address] [place] [address] [id number] 2021 Unknown [id number] 2003 Unknown [id number] 2003 Unknown [id number] 2003 Unknown [id number] 2003 Unknown [id number] 1959 Unknown [id number] Social History Date Type Detail Facility Start: 09-11-2023 End: 03-25-2024 Tobacco smoking status DCIS Never smoked tobacco [facility] Start: 09-11-2023 End: 03-25-2024 Tobacco use and exposure Smokeless tobacco non-user [facility] Start: 07-01-2024 End: 11-11-2024 Alcoholic beverage intake Current non-drinker of alcohol (finding) [facility] Start: 07-01-2024 End: 11-11-2024 History of Social function [facility] Start: 07-01-2024 End: 11-11-2024 Tobacco use panel [facility] [employer] How hard is it for y ou to pay for the very basics like food, housing, medical care, and heating Not hard at all [facility] (I/We) worried wheth er (my/our) food would run out before (I/we) got money to buy more. Never true [facility] Start: 2003 Sex assigned at Not on file [address] Start: 09-11-2023 Alcohol intake Lifetime non-d fredi (finding) [facility] Has the electric, Nightpro s, oil, or water company threatened to shut off services in your home in past 12Mo No [facility] Start: 08-05-2012 Sex Female (finding) [facility] History of Present illness Narrative 09-11-2023 Pascale Wolf, RN PRIOR AUTHORIZATION-MEDIA CLERK - 09/11/2023 9:40 AM EDT Note Date [...] keeping a job, she did work at [employer] for awhile but her outbursts cost her the position [...] nursing note reviewed. Exam conducted with a flute grinder present (mother). Constitutional: Appearance: Normal appearance. HENT: [...] Future Bipolar 1 disorder with moderate yi ([facility]) - Ambulatory referral to Mental Health Counselor [...] her mother Will try [facility] in [place] for counseling DULCE Mathews 09/11/23 1229 documented in this encounter [facility] Evaluation note Note Date & Type Note Facility Evaluation note Diagnosis Vulvovaginal candidiasis Candidiasis of vulva and vagina documented in this encounter [facility] Evaluation note Note Date & Type Note Facility Evaluation note Diagnosis Autism spectrum disorder- Primary Autistic disorder, current or active state Bipolar 1 disorder with moderate yi ([facility]) documented in this encounter [facility] Evaluation note Note Date & Type Note Facility Evaluation note Diagnosis Routine screening for STI (sexually transmitted infection) Screening examination for venereal disease documented in this encounter [facility] Instructions Note Date & Type Note Facility Instructions Not on filedocumented in this en counter [facility] Reason for referral (narrative) Consultation (Routine) - Pending Review Note Date & Type Note Facility Reason for referral (narrati ve) Specialty Diagnoses / Procedures Referred By Cem eisenberg Referred To Contact Diagnoses Autism spectrum disorder Bipolar 1 disorder with moderate yi ([facility]) Pascale Wolf APRN-FNP [address] [id number] Referral ID Status Reason Start Date Expiration Date V isits Requested Visits Authorized [id number] Pending Review 09/11/2023 09/10/2024 1 1 [facility] Summary Purpose Family History No Family History Records FoundNo Family History Records FoundNo Family History Records Found Advance Directives No Advanced Directives Records FoundNo Advanced Directives Records FoundNo Advanced Directives Records Found Additional Source Comments INFORMATION SOURCE (unrecogn ized section and content) DATE CREATED AUTHOR 10/08/2021 [facility] DATE CREATED AUTHOR AUTHOR'S ORGANIZ ATION 02/23/2024 [facility] DATE CREATED AUTHOR AUTHOR'S ORGANIZ ATION 11/12/2024 [facility] Care Teams (unrecognized sec tion and content) Utility Driver Relationship Specialty Start Date End Date Colleen Khan MD PCP - General Pediatrics 08/19/11 Utility Driver Relationship Specialty Start Date End Date Colleen Khan MD PCP - General Pediatrics 08/19/11 Reason for Visit (unrecogniz ed section and content) Reason Comments New Patient FOR RECORDS PERTAINING TO PATIENTS WHO ARE [...] BE BASED ON THE PRIMARY CLINICAL RECORDS. [facility]. provides no warranty or guarantee of the accuracy or completeness of information in this document.
--- OUTSIDE RECORDS SUMMARY | 2024-12-21 18:13 | XMS_ITS | Clinical Summary ---
Author Organization [facility] Address [address] [place] [address] Care Team Providers Care Wind Development Director Name Role Phone Narendra Quintanilla MD Primary Care Provider Allergies No known active allergies Medications EPINEPHrine (EPIPEN 2-NIKKI) 0.3 MG/0.3ML SOAJ injection Inject 0.3 mLs into the muscle once for 1 dose Use as directed for allergic reaction. If you use this you need to call 911 and get the closest emergency department. 0.3 mL 7 Active norethindrone-e thinyl estradiol (LOESTRIN FE 07/15) 1-20 MG-MCG per tabletIndicatio ns:Dysmenorrhea Take 1 tablet by mouth daily 1 packet 11 5 Active Additional Information Patient not taking.Reported on 11/11/2024 Active Problems Problem Noted Date Diagnosed Date Behavioral problems 12/22/2014 History of suicidal ideation 12/22/2014 History of homicidal ideation 12/22/2014 Academic underachievement disorder 12/22/2014 Developmental delay 12/22/2014 Tonsillitis and adenoiditis, chronic 02/15/2012 ADHD (attention deficit hyperactivity disorder) 08/19/2011 Chronic anxiety 08/19/2011 Anxiety attack 08/19/2011 Daytime enuresis 08/19/2011 Resolved Problems Problem Noted Date Diagnosed Date Resolved Date Tonsillitis and adenoiditis, chronic 08/19/2011 08/19/2011 Overview (08/19/2011): Surgery in May Encounters Date Type Department Care Team Description 11/13/2024 Orders Only [facility] Obstetrics & Gynecology [address], [address] [place] [address] Regulo Srinivasan APRN - CNM 11/11/2024 5:24 PM EDT - 11/11/2024 11:59 PM EDT Hospital Encounter [facility] [address] [place] [address] Routine screening for STI (sexually transmitted infection) Discharge Disposition: Home or Self Care 11/11/2024 3:45 PM EDT Office Visit [facility] Part of [facility] [address] [place] [address] Regulo Srinivasan APRN - CNM Routine screening for STI (sexually transmitted infection) (Primary Dx); Dysmenorrhea 11/11/2024 Results Follow-Up [facility] Obstetrics and Gynecology [address] [place] [address] Regulo Srinivasan APRN - CNM from Last 3 Months Immunizations Immunization Administration Dates Next Due DTaP 05/12/2005, 4,2003,2002 Hepatitis B (Engerix-B) 02/26/2004,2003 Pneumococcal, PCV-13, PREVNA R 13, (age 6w+), IM, 0.5mL 07/01/2004,02/26/2004,2003,2002 Poliovirus, IPOL, (age 6w+), SC/IM, 0.5mL 05/12/2005,02/26/2004,2003,2002 Family History Medical History Relation Name Comments Seizures Brother ADHD Father Allergies Father Depression Father High Blood Pressure Father Heart Attack Maternal Grandfather Bleeding Prob Maternal Grandmother Heart Attack Maternal Grandmother Eczema Mother Heart Disease Mother Allergies Sister Relation Name Status Comments Brother Father Maternal Grandfather Maternal Grandmother Mother Sister Social History Tobacco Use Types Packs/Day Years Used Date Smoking Tobacco: Never Smokeless Tobacco: Never Tobacco Cessation:Counseling Given: Not Answered Alcohol Use Standard Drinks/Week Comments No 0 (1 standard drink = 0.6 oz pur e alcohol) [facility] Utilities Answer Date Recorded In the past 12 months has th e electric, gas, oil, or water company threatened to shut off services in your home? No 11/11/2024 Overall Financial Resource Strain (CARDIA) Answe r Date Recorded How hard is it for you to pa y for the very basics like food, housing, medical care, and heating? Not hard at all 07/31/2023 PHQ-2 Answer Date Recorded PHQ-9 Total Score 0 07/01/2024 Hunger Vital Sign Answer Date Recorded Within the past 12 months, y ou worried that your food would run out before you got the money to buy more. Never true 11/12/19 25 Within the past 12 months, t he food you bought just didn't last and you didn't have money to get more. Never true 11/11/2024 PRAPARE - Transportation Answer Date Re corded In the past 12 months, has l ack of transportation kept you from medical appointments or from getting medications? No 10/24 In the past 12 months, has l ack of transportation kept you from meetings, work, or from getting things needed for daily living? No 11/11/2024 Housing Stability Vital Sign Answer Yemi e Recorded Unable to Pay for Housing in the Last Year Not o n file 07/31/2023 Number of Places Lived in the Last Year Not on f ile 07/31/2023 In the last 12 months, was t here a time when you did not have a steady place to sleep or slept in a nursing home (including now)? No 07/31/2023 Housing Stability Vital Sign Answer Yemi e Recorded In the last 12 months, was t here a time when you were not able to pay the mortgage or rent on time? No 11/11/2024 In the past 12 months, how m any times have you moved where you were living? 0 11/11/2024 At any time in the past [address] [facility], were you homeless or living in a nursing home (including now)? No 11/11/2024 Food Insecurity Answer Date Recorded Within the past 12 months, y ou worried that your food would run out before you got the money to buy more. 1 11/11/2024 Within the past 12 months, t he food you bought just didn't last and you didn't have money to get more. 1 11/11/2024 Comments No Sex and Gender Information Value Date Recorded Sex Assigned at Not on file Legal Sex Female 3:31 PM EST Gender Identity Not on file Sexual Orientation Not on file Last Filed Vital Signs Vital Sign Reading Time Taken Comments Blood Pressure 120/72 11/11/2024 4:01 PM EDT Pulse 90 09/04/2017 1:11 PM EDT Temperature 36.5 C (97.7 F) 09/04/2017 1:11 PM EDT Respiratory Rate 20 09/04/2017 1:11 PM EDT Oxygen Saturation 98% 09/18/2016 6:26 PM EDT Inhaled Oxygen Concentration - - Weight 82.6 kg (182 lb) 11/11/2024 4:01 PM EDT Height 167.6 cm (5' 6 ) 11/11/2024 4:01 PM EDT Body Mass Index 29.38 11/11/2024 4:01 PM EDT Plan of Treatment Upcoming Encounters Date Type Department Care Team (Late st Contact Info) Description 03/31/2025 10:45 AM EDT Office Visit [facility] [place] [address] Regulo Srinivasan APRN - CNM [address] [place], [place] [id number] yearly Health Maintenance Due Date Last Done Comments Hepatitis B vaccine (3 of 3 - 3-dose series) 04/22/2004 02/26/2004, 2003 DTaP/Tdap/Td vaccine (5 - Tdap) 2014 05/12/2005, 02/26/2004, 2003, Additional history exists Varicella vaccine (1 of 2 - 13+ 2-dose series) 01/17/2016 HPV vaccine (1 - 3-dose series) 2018 Meningococcal B vaccine (1 of 2 - Standard) 2019 COVID-19 Vaccine (1 - 2023- season) 2024 Flu vaccine (Season Ended) 2025 Depression Screen 07/01/2025 07/01/2024, 07/01/2024 Chlamydia/GC screen 11/11/2025 11/11/2024, Pap smear 03/25/2027 03/25/2024 Pneumococcal 0-49 years Vaccine Completed 07/01/2004, 02/26/2004, 2003, Additional history exists Polio vaccine Completed 05/12/2005, 07/2003, 2003, Additional history exists HIV screen Completed 11/11/2024 Hepatitis C screen Completed 11/11/2024 Hepatitis A vaccine Aged Out No longe r eligible based on patient's age to complete this topic Hib vaccine Aged Out No longer eligi ble based on patient's age to complete this topic Meningococcal (ACWY) vaccine Aged Out No longer eligible based on patient's age to complete this topic Procedures Procedure Name Priority Date/Time Associated Diagnosis Comments T. PALLIDUM AB Routine 11/11/2024 4:13 PM EDT Routine screening for STI (sexually transmitted infection) HEPATITIS C ANTIBODY Routine 11/11/2024 4:13 PM EDT Routine screening for STI (sexually transmitted infection) HIV SCREEN Routine 11/11/2024 4:13 PM EDT Routine screening for STI (sexually transmitted infection) VAGINITIS DNA PROBE Routine 11/11/2024 4:13 PM EDT Routine screening for STI (sexually transmitted infection) C.TRACHOMATIS N.GONORRHOEAE DNA Routine 11/11/2024 4:13 PM EDT Routine screening for STI (sexually transmitted infection) [facility] CYTOLOGY Routine 03/25/2024 12:00 AM EDT from Last 3 Months or Most Recently Relevant to Health Maintenance Results * C.trachomatis N.gonorrhoeae DNA (11/11/2024 4:13 PM EDT) Specimen Description .CERVIX 11/11/2024 4:13 PM EDT [facility] C. trachomatis DNA NEGATIVE NEGATIVE 11/11/2024 4:13 PM EDT [facility] Comment: CHLAMYDIA TRACHOMATIS DNA not detected by nucleic acid [...] results by an alternative nucleic acid target. N. gonorrhoeae DNA NEGATIVE NEGATIVE 11/11/2024 4:13 PM EDT [facility] Comment: NEISSERIA GONORRHOEAE DNA not detected by nucleic acid [...] results by an alternative nucleic acid target. CERVICAL SWAB / Unknown 11/11/2024 4:13 PM EDT 11/11/2024 7:13 PM EDT Regulo Srinivasan SMELLER - CNM MICROBIOLOGY - GENERAL ORDERABLES Final Result [facility] [address] [place] [address], [facility] [phone] [place] [id number], [facility] [phone] * (ABNORMAL) Vaginitis DNA Probe (11/11/2024 4:13 PM EDT) Source .VAGINAL SWAB 11/11/2024 4:13 PM EDT [facility] Trichomonas NEGATIVE NEGATIVE 11/11/2024 4:13 PM EDT [facility] Comment:for Trichomonas Vagi nalis GARDNERELLA VAGINALIS POSITIVE(A) NEGATIVE 11/11/2024 4:13 PM EDT [facility] Comment:for Gardnerella vagi nalis Migdalia species NEGATIVE NEGATIVE 4:13 PM EDT [facility] Comment: for Migdalia sp. Method of testing is a DNA probe intended for detection and identification of Migdalia species, Gardnerella vaginalis, and Trichomonas vaginalis nucleic acid in vaginal fluid specimens from patients with symptoms of vaginitis/vaginosis. SPECIMEN FROM CERVIX OR VAGINA / Unknown 11/11/2024 4:13 PM EDT 11/11/2024 7:14 PM EDT Regulo Craig DONOVANN - CN MICROBIOLOGY - GENERAL ORDERABLES Final Result Performing Organization Address [facility] Co de Phone Number [facility] [address] [place] [address], [facility] [phone] [facility] [address] [place] [address], [facility] [phone] * T. pallidum Ab (11/11/2024 4:13 PM EDT) T. pallidum, IgG NONREACTIVE NONREACTIVE 11/11/2024 4:13 PM EDT [facility] Comment: T. pallidum antibodies are not detected. There is no serological evidence of infection with T. pallidum (early primary syphilis cannot be excluded). Retest in 2-4 weeks if syphilis is clinically suspect. Blood BLOOD SPECIMEN / Unknown 11/11/2024 4:13 PM EDT 11/11/2024 7:13 PM EDT Result [facility] Regulo Craig [facility] - [facility] IMMUNOLOGY ORDERABLES F inal Result Performing Organization Address [facility] de Phone Number [facility] [address] [place] [address], [facility] [phone] [facility] [address] [place] [address] * Hepatitis C Antibody (11/11/2024 4:13 PM EDT) Hepatitis C Ab NONREACTIVE NONREACTIVE 11/12/19 4:13 PM EDT [facility] Comment: The hepatitis C procedure used in [...] recommended by ordering HCV RNA by PCR. Blood BLOOD SPECIMEN / Unknown 11/11/2024 4:13 PM EDT 11/11/2024 7:13 PM EDT us Regulo Srinivasan SMELLER - CNM IMMUNOLOGY ORDERABLES F inal Result Performing Organization Address [facility] Co de Phone Number [facility] [address] [place] [address], [facility] [phone] [facility] [employer] [address] [place] [address], [facility] [phone] * HIV Screen (11/11/2024 4:13 PM EDT) Pathologist [facility] HIV Ag/Ab NONREACTIVE NONREACTIVE 11/11/2024 4:13 PM EDT [facility] Comment: No laboratory evidence of HIV infection. If acute HIV infection is suspected, consider testing for HIV-1 RNA. BLOOD SPECIMEN / Unknown 11/11/2024 4:13 PM EDT 11/11/2024 7:13 PM EDT Regulo Srinivasan SMELLER - CNM IMMUNOLOGY ORDERABLES F inal Result Performing Organization Address [facility] Co de Phone Number [facility] [address] [place] [address], [facility] [phone] [place] [address], [facility] [phone] * [facility] Cytology (03/25/2024 12:00 AM EDT) Cytology Report Path Number: [id number] DIAGNOSIS Imaged ThinPrep Pap - Cervical (1 monolayer slide): Specimen Adequacy: Satisfactory for evaluation. - Endocervical/trans formation zone component present. Descriptive Diagnosis: Negative for intraepithelial lesion or malignancy. Shift in yahir suggestive of bacterial vaginosis. Cytotech Screener: [id number] Electronically Signed Out Zhannalashonda Leyva lt1/03/30/2024 Source of Specimen: A: Imaged ThinPrep Pap - Cervical (1 monolayer slide) HPV Reflex?........... ...........HPV if ASCUS Clinical History Z12.4 Encounter for screening for malignant neoplasm of cervix Processing Lab: [address] [phone] Interpretation performed at [address] [phone] This Pap Test has been evaluated with the assistance of the Neredekal.comPrep Pap Test Imaging System. The Pap smear is a screening test primarily for squamous epithelial lesions, which is subject to both false negative and false positive results. Your patient should be reminded to consult you immediately if she experiences any suspicious signs or symptoms, regardless of her Pap smear result. GYNECOLOGIC CYTOLOGY REPORT Patient Name: SHERRI MATA [facility] Rec: [id number] [facility] ANATOMIC PATHOLOGY [address] [place] [address]. [place], [place] [address] [facility] fake company 2.0 CERVICAL MATERIAL 03/25/2024 024 7:25 AM EDT Regulo Srinivasan APRN - ZAFARM PATHOLOGY/CYTOLOGY TETO VARELA Final Result [facility] [address] [place], [place] [address] [phone] [facility] [employer] from Last 3 Months or Most Recently Relevant to Health Maintenance Insurance [employer] Member Subscriber Plan / Payer (Ef fective 2021-Present) Name:Sherri Mata Relation to Subscriber:Child Name:Adolfo Leah Gilbert Date of :1984 (Home) Address: [address] [place] [address] Payer ID:Not on file Type:Not on file Address: [address] [place] [phone] [facility] [employer] Care Teams Wind Development Director Relationship Specialty Start Date End Date Narendra Quintanilla MD PCP - General Pediatrics 08/19/11
--- OUTSIDE RECORDS SUMMARY | 2024-12-21 18:13 | XMS_ITS | Encounter Summary ---
Author Organization [facility] Address [address] [place] [address] Care Team Providers Care Crew Attendant Name Role Phone Narendra Quintanilla MD Primary Care Provider [phone] Encounter Details Date Type Department Care Team (Late st Contact Info) Description 11/11/2024 Results Follow-Up [facility] Obstetrics and Gynecology [address] [place] [address] [place] [phone] Regulo Srinivasan, NUBIA - GEETHA [address] [place] [address] Social History Tobacco Use Types Packs/Day Years Used Date Smoking Tobacco: Never Smokeless Tobacco: Never Alcohol Use Standard Drinks/Week Comments No 0 (1 standard drink = 0.6 oz pur e alcohol) [facility] Utilities Answer Date Recorded In the past 12 months has [employer], gas, oil, or water [employer] threatened to shut off services in your [...] place to sleep or slept in a retirement (including now)? No 07/31/2023 Housing Stability Vital [...] in the past [address] [facility], were you homeless or living in a retirement (including now)? No 11/11/2024 Food Insecurity Answer [...] as of this encounter Plan of Treatment Upcoming Encounters Date Type Department Care Team (Late st Contact Info) Description 03/31/2025 10:45 AM EDT Office Visit [facility]OLOG[facility] Part of [address] [address] Regulo Srinivasan APRN - CNM [address] [place] [address] yearly documented as of this encounter Visit Diagnoses Not on filedocumented in this encounter Care Teams Crew Attendant Relationship Specialty Start Date End Date Narendra Quintanilla MD PCP - General Pediatrics 08/19/11 documented as of this encounter
--- NOTE | 2024-12-21 18:18 | XR_ITS ---
[place] [id number] Patient Name: GAVI HOLLIS MRN: [id number] date: 2005 Sex: F Assigned Patient Location: ER Current Patient Location: ED.MAIN Accession/Order Number: [id number] Exam Date: 12/21/2024 19:00 Report Date: 12/21/2024 19:02 At the request of: EDA KNIGHT Procedure: XR knee RT 3V RIGHT KNEE - 3 views CLINICAL HISTORY: pain s/p fall on mon. COMPARISON: None FINDINGS: No fracture or dislocation. Question trace joint effusion. Joint spaces preserved. Soft tissues unremarkable. XR/XR knee RT 3V IMPRESSION: Negative acute osseous abnormality. Impression dictated by: Sav Cruz M.D. 12/21/2024 7:02 PM Dictation Location: [place] [address] Electronically authenticated by: [id number] Y Date: 12/21/2024 19:02
--- NOTE | 2024-12-21 18:19 | ED_ITS ---
HPI HPI - Extremity Injury (Lower) General Chief Complaint: Extremity Injury, Lower Stated Complaint: FALL, PAIN IN R KNEE Time Seen by Provider: 12/21/24 18:13 Source: patient Mode of arrival: walk-in Limitations: no limitations History of Present Illness HPI Narrative: Patient is a 19-year-old female presents to the ER with concerns of right knee pain. Patient states on Monday she was walking down some steps and did not realize that there was some glass and she slipped. Patient states she went down approximately 10 steps twisting her leg but states that it happened very fast. She denies any head or neck injury. She has tried to ice and rest but notes when she does activity the knee continues to swell and feels like there is something wrong. She describes a sharp pain at times with certain bending and twisting positions that is more intense she denies any pain to the proximal hip or distal ankle. Patient ambulatory on arrival favoring the right knee slightly. Patient need for any pain medicine at this time agreeable to ice pack placed at the bedside. MD complaint: Reports knee injury Injury: Right: knee Type of Injury: Denies blunt or inversion Place: Reports home Severity: moderate Relieving factors: Reports NSAID and cold therapy Exacerbating factors: Reports weight bearing and movement Context: Reports fall Associated symptoms: Reports swelling; Denies snap/pop sensation Other symptoms: Reports none Treatments prior to arrival: Reports cold therapy Related Data Home Medications ?Medication ?Instructions ?Recorded ?Confirmed norethindrone 1 mg-ethinyl tab 08/05/24 estradiol 20 mcg (21)-iron 75 mg (7) tablet (Karyn Fe 07/15 ()) Previous Rx's ?Medication ?Instructions ?Recorded methylprednisolone 4 mg tablets in 4 mg PO DAILY #21 e a 12/21/24 a dose pack (Medrol (Dilip)) Allergies Allergy/AdvReac Type Severity Reaction Status Date / Time No Known Drug Allergies Allergy Verified 08/05/24 20:00 Review of Systems ROS Constitutional Denies: fever or chills Eyes Denies: change in vision or blurry vision Ears, nose, mouth, and throat Denies: throat pain or neck pain Cardiovascular Denies: chest pain, palpitations or edema Respiratory Denies: shortness of breath, cough or wheezing Gastrointestinal Denies: abdominal pain, nausea or vomiting Musculoskeletal Denies: back pain, neck pain, extremity pain or extremity swelling Integumentary/Breast Denies: rash, itching, redness or skin pain Neurological Denies: headache, numbness in extremities or weakness in extremities Psychiatric Denies: anxiety PFSH PFS Social History Smoking status: Current some day smoker Little interest or pleasure in doing things: not at all Feeling down, depressed, or hopeless: not at all Exam Narrative Exam Narrative: Vital signs reviewed and nurse's notes. The patient is not hypoxic. General: Alert, no acute distress, patient resting comfortably Skin: warm, intact, no pallor noted Head: Normocephalic, atraumatic Eye: Normal conjunctiva, no exudates Respiratory: No acute distress, lungs CTA Musculoskeletal: No evidence of deformity to the right knee. There is mild amount of swelling with effusion, skin wrinkles present. Patient has nickel sized circular bruising along the inside of the knee in 3 different spots. No erythema or warmth noted. DP and PT pulses are intact 2+. Normal sensation, normal capillary refill less than 2 seconds. There is no cyanosis or mottling noted. The patient has tenderness to medial and lateral joint line of the right knee. The patient has no laxity with varus or valgus stressing. no MCL or LCL tenderness, The patient has negative anterior drawer and Olga testing. The patient was able to flex and extend although with pain mostly on terminal flexion. Patient was able to extend leg off the cart without difficulty. No tenderness noted to the 5th MT, midfoot, ankle or proximal fibular area. There is no pain with calcaneal squeeze, achilles tendon is intact and no defect is palpated. The patient has no pelvic instability. The patient has no shortening or rotation noted to the bilateral lower extremities. Neurological: alert and orient x4, normal sensory and motor observed. Psychiatric: Cooperative Constitutional Vital Signs, click to edit/add: Last Vital Signs Temp 99.3 F 12/21/24 18:11 Pulse 72 12/21/24 18:11 Resp 18 12/21/24 18:11 BP 128/96 H 12/21/24 18:11 Pulse Ox 99 12/21/24 18:11 O2 Del Method Room Air 12/21/24 18:11 Course Vital Signs Vital signs: Vital Signs Temperature 99.3 F 12/21/24 18:11 Pulse Rate 72 12/21/24 18:11 Respiratory Rate 18 12/21/24 18:11 Blood Pressure 128/96 H 12/21/24 18:11 Pulse Oximetry 99 12/21/24 18:11 Oxygen Delivery Method Room Air 12/21/24 18:11 Temperature 99.3 F 12/21/24 18:11 Pulse Rate 72 12/21/24 18:11 Respiratory Rate 18 12/21/24 18:11 Blood Pressure 128/96 H 12/21/24 18:11 Pulse Oximetry 99 12/21/24 18:11 Oxygen Delivery Method Room Air 12/21/24 18:11 MDM - Extremity Injury (Lower) MDM Narrative Medical decision making narrative: Right knee bruising and effusion we discussed her exam she does have positive Viviane's medial lateral straight leg raise is intact. No pain or laxity with stressing MCL or LCL. X-rays performed given her history of fall and persistent symptoms strongly recommend orthopedic follow-up for further evaluation. She declines need for pain medication today but will be supplemented with an Leroy wrap for compression and encouraged to continue with icing. For limb narrowing view right knee x-ray 3 view shows a mild effusion no evidence of fracture normal alignment. Preservation of the weightbearing surface noted without significant arthritic changes. The need for ice elevation and continued use of Tylenol for pain. She be placed on a Medrol Dosepak for her effusion pending follow-up with orthopedics. We discussed the need for reevaluation and potential further imaging given her pain symptoms. Patient will avoid deep squatting or quick pivoting. She is also given the name of local family physicians to establish care patient is thankful had no further concerns or questions. The patient is to followup with primary care physician/ ortho in next 2-3 days or to return to the emergency department should any of the signs or symptoms worsen or new symptoms develop. Patient had questions answered. The patient agrees with the following Diagnosis and Treatment plan and the patient will be discharged home. Discharge Plan Discharge Chief Complaint: Extremity Injury, Lower Clinical Impression: Acute pain of right knee, Effusion of right knee Patient Disposition: Home, Self-Care Time of Disposition Decision: 18:48 Condition: Good Prescriptions / Home Meds: New methylprednisolone [Medrol (Dilip)] 4 mg tablets,dose pack 4 mg PO DAILY Qty: 21 0RF Rx Instructions: take as directed for 6 days. No Action norethindrone-e.estradiol-iron [Karyn Fe 07/15 (28)] 1 mg-20 mcg (21)/75 mg (7) tablet Print Language: Vietnamese Instructions: Swollen Knee Joint (ED), Knee Pain (ED) Additional Instructions: Please call Dr. Carter on Monday for follow up. LEROY wrap if up for more than 10 mins remove at rest. Referrals: Qamar George MD [Physician, Family Practice] - 1 week DIONE CARTER [Referring] - As soon as possible
== END 2024-12-21 18:58 | disposition home or self-care (01) ==
PROVIDERS: Emergency Provider Emergency Medicine
DX: M25.461 Effusion, right knee (principal); M25.561 Pain in right knee; F17.200 Nicotine dependence, unspecified, uncomplicated
CPT/HCPCS: 73562; 99283

== ENCOUNTER 2025-05-02 11:51 | Emergency (ER) | payer OTHER, SELFPAY ==
[2025-05-02] VITALS (20 sets, daily range): BP systolic 113–140; BP diastolic 71–82; PULSE 48–93; TEMP 36.5; O2SAT 99; BMI 27.4
--- NOTE | 2025-05-02 12:18 | ECG_ITS ---
[facility] Test Date: 2025-05-02 Pat Name: GAVI HOLLIS Department: Room: - Gender: Female Author: : [id number] Requested By: [id number] Order Number: [id number] Reading MD: DONTE HERNANDEZ Measurements Intervals [place] Rate: 58 P: 62 NC: 170 QRS: 85 QRSD: 92 T: 73 QT: 438 QTc: 435 Interpretive Statements 1100 Sinus rhythm 1102 Sinus arrhythmia 9110 normal ECG Compared to ECG 07/24/2023 20:30:14 No significant changes Electronically Signed On 05-02-2025 16:38:16 EST by DONTE HERNANDEZ
[2025-05-02] MEDS: 0.9 % SODIUM CHLORIDE 1,000 ML 1000 ML IV (12:28)
--- OUTSIDE RECORDS SUMMARY | 2025-05-02 12:29 | XMS_ITS | Clinical Summary ---
Author Organization [employer] [facility] Address [id number] [place] [address] Care Team Providers Care Operations Systems Specialist Name Role Phone Unavailable Primary Care Provider Unavailabl e Allergies No known active allergies Medications No known medications Active Problems ProblemNoted DateDiagnosed DateAutism vukjfpzn57/18/2024 Family History Medical HistoryRelationNameCommentsMental illnessFatherAnemiaMotherRelationName StatusCommentsFatherMother Social History Tobacco UseTypesPacks/DayYears UsedDateSmoking Tobacco: NeverSmokeless Tobacco: NeverAlcohol UseStandard Drinks/WeekCommentsNever0 (1 standard drink = 0.6 oz pure alcohol)PHQ-2AnswerDate RecordedTotal Amusx920Hunger Screening AnswerDate RecordedWithin the past 12 months we worried whether our food would run out before we got money to buy more.Never True09/11/2023Within the past 12 months the food we bought just didn't last and we didn't have money to get more. Never True09/11/2023CommentsUnknownSex and Gender InformationValueDate RecordedSex Assigned at BirthNot on fileLegal XebDjhghk92/26/2023 12:31 PM EDT Gender IdentityNot on fileSexual OrientationNot on file Last Filed Vital Signs Vital SignReadingTime TakenCommentsBlood Uuybtmfo53/5803 10:13 AM EDT Seiog192809/11/2023 10:13 AM HBMRceohiyxaxn58.8 ??C (98.3 ??F)09/11/2023 10:13 AM EDTRespiratory Rate--Oxygen Zuivasejdc383%09/11/2023 10:13 AM EDTInhaled Oxygen Concentration--Gwqixr94.2 kg (187 lb 12.8 oz)09/11/2023 10:13 AM CKMLubtmb275.1 cm (5' 7.76 )09/11/2023 10:13 AM EDTBody Mass Index28.76009/11/2023 10:13 AM EDT Plan of Treatment Health MaintenanceDue DateLast DoneCommentsChlamydia Qzuivftgy2003 DTaP,Tdap and Td Vaccines (1 - Tdap)2Pap Smear01/17/2024dult BMI Ypsxoaivv41epression Dgkhmyken56/18/031367/Tobacco Svceprpbo74/Influenza Adynqqa5002/24/2025 Medical Devices Not on file Insurance
--- OUTSIDE RECORDS SUMMARY | 2025-05-02 12:30 | XMS_ITS | CCD ---
Author Organization [facility] Inform ion Partnership [facility] Care Team Providers Care Lead Inspector Name Role Phone MARKER, DR VASQUEZ Attending [...] KHAN Primary Care Unavailable Medications Current Medications MedicationDrug Class(es)DatesSig (Normalized)Sig (Original)Ethinyl Estradiol / Ferrous fumarate / Norethindrone (2 sources)EstrogenStart: 34-73-4118wjvx 1 tablet by mouth once daily, then take 0.05-1 tablets by mouth oncenorethindrone-ethinyl estradiol (LOESTRIN FE 07/15) 1-20 MG-MCG per tablet Indications: DysmenorrheaTake 1 tablet by mouth daily 1 packet 11 07/01/2024 Activefluconazole 150 mg oral tablet (1 source)Azole AntifungalStart: 07-01-2024 End: 96-97-3065vrkfqvtwvms (DIFLUCAN) 150 MG tablet Indications: Vulvovaginal candidiasis Take 1 tablet by mouth every 72 hours for 6 days 2 tablet 07/01/2024 07/07/2024 ActivemetroNIDAZOLE 500 mg oral tablet (1 source)Nitroimidazole AntimicrobialStart: 07-01-2024 End: 01-35-3597junq 1 tablet by mouth twice dailymetroNIDAZOLE (FLAGYL) 500 MG tablet Take 1 tablet by mouth 2 times daily for 7 days 14 tablet 07/01/2024 07/08/2024 Active Problems Active Problems Problem ClassificationProblemDateDocumented DateEpisodic/ChronicAcute and chronic tonsillitis (4 sources)Chronic adenotonsillitis; Translations: [Chronic tonsillitis and adenoiditis]Onset: 08-19-2011 Resolved: 742411-78-8635UvidurrBnayanz disorders (4 sources)Chronic anxiety; Translations: [Anxiety disorder, unspecified]Onset: 987164-38-7442XmppqmuImcnzzong-cvxrwqg, conduct, and disruptive behavior disorders (2 sources)Attention deficit hyperactivity disorder; Translations: [Attention- deficit hyperactivity disorder, unspecified type]Onset: ChronicDisorders usually diagnosed in infancy, childhood, or adolescence (2 sources)Autism spectrum disorder; Translations: [Autistic disorder]Onset: 980129-15-9951RnfctadC Codes: Fall (1 source)Fall on same level from slipping, tripping and stumbling with subsequent striking against other object, initial encounter; Translations: [FALL SAME LVL SLIP STRK OTH OBJ INT]Onset: 31-54-7517JssznyypUcdqlooqgstxe symptoms and ill-defined conditions (2 sources)Daytime enuresis; Translations: [Unspecified urinary incontinence] Onset: 082773-32-7241FtchcdrUcdwrbbkqzosf and screening for infectious disease (2 sources)Patient encounter status; Translations: [Encounter for screening for infections with a predominantly sexual mode of transmission]Onset: 11-11-2024 54-03-5223GhzhfjweGdqy disorders (1 source)Moderate manic bipolar I disorder; Translations: [Bipolar disorder, current episode manic without psychotic features, moderate]20-79-4282Drlpetu Mycoses (1 source)Candidal vulvovaginitis; Translations: [Vulvovaginal candidiasis] 12-04-1703HkrjpqihYsnvy injuries and conditions due to external causes (4 sources)Other specified injuries of head, initial encounter; Translations: [OTH SPEC INJURIES HEAD INITIAL ENC]Onset: 16-57-9796WbjaeuqyMlzqqqlcktz injury; contusion (1 source)Contusion of other part of head, initial encounter; Translations: [CONTUS OTH PRT HEAD INITIAL ENCNTR]Onset: 56-58-2640UqgxgkboMumkthacgsub (1 source)Acute candidiasis of vulva and vagina; Translations: [Acute candidiasis of vulva and vagina]Onset: 07-01-2024 Past or Other Problems Problem ClassificationProblemDateDocumented DateEpisodic/Chronic Administrative/social admission (2 sources)Academic underachievement disorder; Translations: [Underachievement in school]Onset: 525479-13-0327TkdxamnkKuvxhjdaw-ragpoky, conduct, and disruptive behavior disorders (2 sources)Problem behavior; Translations: [Other symptoms and signs involving appearance and behavior]Onset: 798209-17-6587RxpppygoFkxq disorders (1 source)Mood disordersOnset: Other female genital disorders (1 source)Other specified noninflammatory disorders of vagina; Translations: [Other specified noninflammatorydisorders of vagina]Onset: 03-07-0393Smkhsemy Other nutritional; endocrine; and metabolic disorders (2 sources)Developmental delay; Translations: [Unspecified lack of expected normal physiological development in childhood]Onset: EpisodicOther screening for suspected conditions (not mental disorders or infectious disease) (1 source)Encounter for screening for malignant neoplasm of cervix; Translations: [Encounter for screening for malignant neoplasm of cervix]Onset: 35-40-4645OdssqenrVkskzqoi codes; unclassified (2 sources)History of clinical finding in subject; Translations: [Personal history of other specified conditions]Onset: 082102-36-9091Qkotocvw Screening and history of mental health and substance abuse codes (2 sources)H/O: psychiatric disorder; Translations: [Personal history of other mental and behavioral disorders]Onset: 921532-15-1712Xatluvar Results Test NameValueInterpretationReference RangeFacilityChlamydia/GC,DNA Ampon 99-83-2584Xnfiqrpsb ProbeNegativeNormalNEGMercy Parkville HospitalComment on above: Result Comment: CHLAMYDIA TRACHOMATIS DNA not detected by [...] positive results by an alternative nucleic acid target.Performed By: #### SWCGP #### [employer] [address] [place] [address] [phone] Assistant County Attorney: Juan Antonio Josehea ProbeNegativeNormalNEGMercy Health Clermont Hospital on above:Result Comment: NEISSERIA GONORRHOEAE DNA not detected by [...] positive results by an alternative nucleic acid target.Performed By: #### SWCGP #### [employer] [address] [place] [address] [phone] Assistant County Attorney: Braeden Estrada MDHIV Ag/Abon 59-55-5107NWV Ag/AbNon-Reactive NormalNRMercy Health Clermont Hospital on above:Result Comment: No laboratory evidence of HIV infection. If acute HIV infection is suspected, consider testing for HIV-1 RNA.Performed By: #### TREP, HIVCMB, AHCV #### [facility] HospitalMiniBanda.ru [address] [place] [address] [phone] Assistant County Attorney: Braeden Estrada MDHIV Screenon 65-36-4948JNL 1+2 Ab+HIV1 p24 Ag IA QlNon-ReactiveNONREACTIVEHealthSouth Medical Center on above:No laboratory evidence of HIV infection. If acute HIV infection is suspected, consider testing for HIV-1 RNA. Bon [facility] HospitalVaginitis DNA Probeon 73-51-7100YknvclfZzvqckiqUxtaxkBRE [facility] on above:Result Comment: for Roman sp. Method of testing is a DNA probe intended for detection and identification of Roman species, Gardnerella vaginalis, and Trichomonas vaginalis nucleic acid in vaginal fluid specimens from patients with symptoms of vaginitis/vaginosis. Performed By: #### VAGP #### [facility] [employer] [address] [place] [phone] Assistant County Attorney: Braeden Estrada MD [address] [place], [place] [phone] Assistant County Attorney: Ana BlackwooddnerellaPositiveAbnoTriHealth Good Samaritan HospitalComment on above:Result Comment: for Gardnerella vaginalisPerformed By: #### VAGP #### [address] [address] Assistant County Attorney: Braeden Estrada MD [address] [place] [phone] Assistant County Attorney: Montserrat BlackwoodhomonasNegativeUniversity Hospitals [facility] Comment on above:Result Comment: for Trichomonas VaginalisPerformed By: #### VAGP #### [address] [address] Assistant County Attorney: Braeden Estrada MD [address] [place] [phone] Assistant County Attorney: Bhavna Blackwood Abon 35-40-1924Ums C AbNon-ReactivePremier Health Miami Valley Hospital SouthComment on above:Result Comment: The hepatitis C procedure used in [...] is recommended by ordering HCV RNA by PCR.Performed By: #### TREP, HIVCMB, AHCV #### [facility] [employer] [address] [place] [phone] Assistant County Attorney: Galen Jose Antibodyon 09-12-2428OBK Ab IA Ql Non-ReactiveNONREWellmont Health System on above: The hepatitis C procedure used [...] HCV RNA by PCR. No Panel Informationon 61-16-3505Vbh [facility] HospitalT. pallidum Abon 11-11-2024T. pallidum Ab IA Ql (S)Non-ReactiveNONREACTIVEAugusta HealthCombeaumont hospital on above: T. pallidum antibodies are not detected. There is no serological evidence of infection with T. pallidum (early primary syphilis cannot be excluded). Retest in 2-4 weeks if syphilis is clinically suspect. T.pallidum Ab Screenon 11-11-2024T.pallidum Ab ScreenNon-ReactiveNoACMC Healthcare System on above:Result Comment: T. pallidum antibodies are not detected. There is no serological evidence of infection with T. pallidum (early primary syphilis cannot be excluded). Retest in 2-4 weeks if syphilis is clinically suspect.Performed By: #### TREP, HIVCMB, AHCV #### [address] [address] Assistant County Attorney: Veronica Josegingage DNA Probeon 97-44-5879Jtisfq.VAGINAL SWABNoOhioHealth Berger HospitalCombeaumont hospital on above:Performed By: #### VAGP #### [address] [address] Assistant County Attorney: Braeden Estrada MD [address] [place] [address] Assistant County Attorney: Veronica Blackwoodginitis DNA Probeon 39-16-6944Erfheql species PositiveAbnormalNEGATIVEHealthSouth Medical Center on above:for Roman sp. Method of testing is a DNA probe intended for detection and identification of Roman species, Gardnerella vaginalis, and Trichomonas vaginalis nucleic acid in vaginal fluid specimens from patients with symptoms of vaginitis/vaginosis. GARDNERELLA VAGINALISPositiveAbnormalNEGATIVEAugusta HealthComment on above:for Gardnerella vaginalisInterpretation and review of laboratory results AbnormalBon [facility] HospitalSource.VAGINAL SWABAugusta Health TrichomonasNegativeNEGATIVEAugusta HealthCombeaumont hospital on above:for Trichomonas VaginalisAugusta HealthCandidaPositiveAbCleveland Clinic Medina HospitalComment on above:Result Comment: for Roman sp. Method of testing is a DNA probe intended for detection and identification of Roman species, Gardnerella vaginalis, and Trichomonas vaginalis nucleic acid in vaginal fluid specimens from patients with symptoms of vaginitis/vaginosis. Performed By: #### VAGP #### [address] [address] Assistant County Attorney: Braeden Estrada MD [address] [place] [phone] Assistant County Attorney: Tim BlackwooderellaPositiveOur Lady of Mercy HospitalComment on above:Result Comment: for Gardnerella vaginalisPerformed By: #### VAGP #### [address] [address] Assistant County Attorney: Braeden Estrada MD [address] [place] [phone] Assistant County Attorney: Cristine BlackwoodonasGreen Cross Hospital Comment on above:Result Comment: for Trichomonas VaginalisPerformed By: #### VAGP #### [address] [address] Assistant County Attorney: Braeden Estrada MD [address] [place], [place] [phone] Assistant County Attorney: Lydia Blackwood.VAGINAL SWABHenry County Hospital Comment on above:Performed By: #### VAGP #### [facility] [address] [place] [address] Assistant County Attorney: Braeden Estrada MD [facility] [address] [place] [address] Dr[address] [place], [place] [phone] Assistant County Attorney: Ector Santiago MDVaginitis DNA Probeon 25-80-9867SpbtxuoCrdshvpv NormalMount St. Mary HospitalComment on above:Result Comment: for Roman sp. Method of testing is a DNA probe intended for detection and identification of Roman species, Gardnerella vaginalis, and Trichomonas vaginalis nucleic acid in vaginal fluid specimens from patients with symptoms of vaginitis/vaginosis. Performed By: #### VAGP #### [facility] [address] [place] [address] Assistant County Attorney: Braeden Estrada MD [facility] [address] [place] [address] Dr. [place] [phone] Assistant County Attorney: Ana BlackwooddnerellaPositiveAbCleveland Clinic Medina HospitalComment on above:Result Comment: for Gardnerella vaginalisPerformed By: #### VAGP #### [facility] [address] [place] [address] Assistant County Attorney: Braeden Estrada MD [address] [place] [phone] Assistant County Attorney: Ector Santiago MDTrichomonasNegOhioHealth Arthur [facility] Comment on above:Result Comment: for Trichomonas VaginalisPerformed By: #### VAGP #### [facility] [address] [place] [address] Assistant County Attorney: Braeden Estrada MD [address] [place] [phone] Assistant County Attorney: MARICHUY Blackwoodytology Reporton 43-24-8077Nynvlkro report Cyto stain.thin prep Doc (Cvx/Vag)(NOTE) Path Number: [id number] DIAGNOSIS Imaged ThinPrep Pap - Cervical (1 monolayer slide): Specimen Adequacy: Satisfactory for evaluation. - Endocervical/transformation zone component present. Descriptive Diagnosis: Negative for intraepithelial lesion or malignancy. Shift in yahir suggestive of bacterial vaginosis. Cytotech Screener: LT1 Electronically Signed Out Zhanna Leyva lt1/03/30/2024 Source of Specimen: A: Imaged ThinPrep Pap - Cervical (1 monolayer slide) HPV Reflex?......................HPV if ASCUS Clinical History Z12.4 Encounter for screening for malignant neoplasm of cervix Processing Lab: [address] [address] Interpretation performed at [address] [address] This Pap Test has been evaluated with the assistance of the ThinPrep Pap Test Imaging System. The Pap smear is a screening test primarily for squamous epithelial lesions, which is subject to both false negative and false positive results. Your patient should be reminded to consult you immediately if she experiences any suspicious signs or symptoms, regardless of her Pap smear result. GYNECOLOGIC CYTOLOGY REPORT Patient Name: SHERRI MATA [facility] Rec: [id number] [facility] ANATOMIC PATHOLOGY [address] [place] [address]. [place], [place] [address] NoOhioHealth Berger HospitalVaginitis DNA Probeon 03-25-2024 Source.VAGINAL SWABNormMagruder Memorial HospitalComment on above:Performed By: #### VAGP #### [address] [address] Assistant County Attorney: Braeden Estrada MD [facility] [address] [place] [address] Assistant County Attorney: Ector Santiago MD Vital Signs Date TimeVital SignValuePerforming TlmfgnchtShntfqzt11-44-1032 10:13-0400Body ekcgti224.1 cmPascale Wolf SUPERVISOR AIRCRA[employer] CLEANING-[employer] REPAIRER Work Phone: [facility]03-18-2024 10:130400Body mass index (BMI) [Ratio]28.76 kg/m2Pascale Wolf SUPERVISOR AIRCRA[employer] CLEAN[employer]-MATRIX REPAIRER Work Phone: [facility]03-18-2024 10:130Body .29 [degF]Pascale Wolf SUPERVISOR AIRCRAFT CLEANING-MATRIX REPAIRER Work Phone: [facility]03-18-2024 10:130400Body yypvzg15.19 kgPascale Wolf SUPERVISOR AIRCRAFT CLEANING-MATRIX REPAIRER Work Phone: [facility]03-18-2024 10:130Diastolic blood mrkwfiws63 mm[Hg]Pascale Wolf SUPERVISOR AIRCRA[employer] CLEANING-MATRIX REPAIRER Work Phone: [facility]03-18-2024 10:130Heart rate 83 /minPascale Wolf SUPERVISOR AIRCRAFT CLEANING-MATRIX REPAIRER Work Phone: [facility]03-18-2024 10:135466HeL4% (BldA) [Mass fraction]100 %Pascale Wolf SUPERVISOR AIRCRA[employer] CLEANING-MATRIX REPAIRER Work Phone: [facility]03-18-2024 10:Systolic blood jfxjigie36 mm[Hg]Pascale Wolf SUPERVISOR AIRCRA[employer] CLEANING-MATRIX REPAIRER Work Phone: [facility] Encounters Encounter DateEncounter TypeCare ProviderFacilityStart: 11-11-2024 End: 65-27-1067dvyprpvjplWSRZMAC BARTHMercy Tiffin HospitalStart: 11-11-2024 End: 48-33-1475Lkhfodliiq hospital visit by Sofia Khan MD Work Phone: [place] LABComment on above:Routine screening for STI (sexually transmitted infection)Start: 07-01-2024 End: 25-52-1654kbbwrgzhlgKAFVBDE BARTHMercy Tiffin HospitalStart: 07-01-2024 End: 09-21-4367Fptjyqppzr hospital visit by Sofia Khan MD Work Phone: mthz LaboratoryComment on above:Vulvovaginal candidiasisStart: 03-25-2024 End: 11-75-1807tzhrbmznpxVGBKTOP [facility]ust[facility] HospitalStart: 11-30-2023 ambulatoryAbdsouthern ohio medical centermandie LevyziFacility:[facility] Hospitaltart: 09-11-2023 End: 56-46-4815Wvjpevx preventive medicine new pt age 18-39yrsMary Gayla Wolf SUPERVISOR AIRCRA[employer] CLEANING-[employer] REPAIRER Work Phone: [facility] Family MedicineComment on above:Autism spectrum disorder (Primary Dx); Bipolar 1 disorder with moderate yi (CMS-HCC)Start: 10-05-2021 End: 98-95-6726zsdqjlwtkrCA CHRISTINA MARKERFacility:H1 Procedures DateProcedureProcedure DetailPerforming ClinicianStart: 78-74-7714Jexnusxc hiv-1&hiv-2 single resultJusteen [facility] HospitalN - CN Work Phone: Start: 20-15-4424Zxqbe multiple organisms amplified probe tqJusteen [facility] HospitalN - [facility] Work Phone: Start: 11-11-2024T. PALLIDUM ABJusteen [facility] - [facility] Work Phone: Start: 56-41-4515Zxbdz roman species direct probe tq Justeen [facility] Work Phone: Start: 58-62-7812Lzzasfdygiw observation [Identifier] in Cervix by Cyto stainColleen Khan MD Work Phone: start: 87-57-8595Byhmz depression screening assessment Pascale Wolf SUPERVISOR AIR[employer] CLEAN[employer]-MATRIX REPAIRER Work Phone: Plan of Treatment DateCare ActivityDetailAuthorStart: 02-12-9932Yuqtkldet for malignant neoplasm of cervixPap smearBon [facility] HospitalStart: 73-09-4520Stqjkfeic for Chlamydia trachomatisChlamydia/GC screenBon [facility] HospitalDizmo [facility] HospitalStart: 20-83-4715Oeiuwrybia ScreenDepression ScreenBon TriHealthart: 03-31-2025 End: 41-14-3352Hcxorgu encounter zmaveqjfp74/06/2025 10:45 AM EDT Office Visit [facility] [address] [place] [address] Jared Srinivasan, SUPERVISOR AIRCRAFT CLEANING - CNM [address] [place] [address] [facility] OBSTETRICS & GYNECOLOGY Part of [facility] ConnecticutComment on above:yearlyStart: 70-97-7608Hkxxuvyda vaccinationFlu vaccine (Season Ended) [facility] Hospitalart: 09-27-0744Chbxp BMI ScreeningAdult BMI Screening [facility] Systemstart: 42-99-8483Ecjjxxrier ScreeningDepression Screening [facility] Systemstart: 19-64-7035Lxazlrd ScreeningTobacco Screening [facility] Systemstart: 94-18-5362Pqbxrfner for Chlamydia trachomatis Chlamydia/GC screenBon [facility] HospitalStart: 93-74-3469DXYIJ-19 Vaccine ( season)COVID-19 Vaccine ( season)[facility] Start: 66-98-5514HKBCZ-19 Vaccine ( season)COVID-19 Vaccine ( season)[facility] HealthStart: 22-58-7395Yhezeuoes vaccinationFlu vaccine (#1)[facility] HealthStart: 77-56-1976Jcjwadnzc vaccination Influenza VaccineNationwide Children's Hospital SystemComment on above:Postponed from 02/24/2023 (Patient Refused)Start: 78-33-8576YAzP,Tdap and Td Vaccines (1 - Tdap)DTaP,Tdap and Td Vaccines (1 - Tdap)[facility] Systemstart: 56-56-4373Gbgsh BMI Follow Up PlanAdult BMI Follow Up PlanNationwide Children's Hospital SystemStart: 15-39-8950Vofdpgnch C screeningHepatitis C screenBon [facility] HospitalStart: 36-65-5672Sluhancijpixn B vaccine (1 of 2 - Standard)Meningococcal B vaccine (1 of 2 - Standard)[facility]: 14-48-3555XFY screeningHIV screenBallad Health: 32-79-5058IVL vaccine (1 - 3- dose series)HPV vaccine (1 - 3-dose series)[facility]: 19-66-9446Nozwkflxn vaccine (1 of 2 - 13+ 2-dose series)Varicella vaccine (1 of 2 - 13+ 2-dose series)[facility]: 00-34-8225CUaJ/Tdap/Td vaccine (5 - Tdap)DTaP/Tdap/Td vaccine (5 - Tdap)[facility]: 64-02-3177Wtjusosfu B vaccine (3 of 3 - 3-dose series)Hepatitis B vaccine (3 of 3 - 3-dose series)[facility]: 00-09-2455Otakrnwyt for Chlamydia trachomatisChlamydia ScreeningNationwide Children's Hospital SystemC.trachomatis N.gonorrhoeae DNAC.trachomatis N.gonorrhoeae DNA Microbiology Routine Routine screening for STI (sexually transmitted infection) 11/11/2024 4:13 PM EDTBLifePoint Hospitals End: 62-81-4824Hbrlnoskm DNA ProbeAugusta HealthComment on above:1 Occurrences starting 11/11/2024 until 11/11/2024 Immunizations Immunization DateImmunizationNotesCare QagwrkyaJjpewpny04-29-8157zmruyqychs, tetanus toxoids and acellular pertussis vaccineColleen Khan MD Work Phone: bLifePoint HospitalsSvxybf23-52-0961pefaidyepk vaccine, inactivatedChstefanie Khan MD Work Phone: bLifePoint HospitalsMafkus12-90-7585krxqiqchamjo conjugate vaccine, 13 valentChstefanie Khan MD Work Phone: bLifePoint HospitalsCkzdff55-29-6961mabavmxmnr, tetanus toxoids and acellular pertussis vaccineColleen Khan MD Work Phone: bLifePoint HospitalsHfrisy96-38-6493duarpzeef B vaccine, unspecified formulationColleen Khan MD Work Phone: [phone]-LifePoint HospitalsOicklo96-62-0365qttiranrkqog conjugate vaccine, 13 valentColleen Khan MD Work Phone: [phone] HospitalsCdqjix50-62-1730bzvunfaqij vaccine, inactivatedColleen Khan MD Work Phone: [phone] HospitalsGukwhn26-58-7400ryiqxnpudf, tetanus toxoids and acellular pertussis vaccineColleen Khan MD Work Phone: [phone]-[facility] HospitalsDiqcio54-83-9145gtbelcnfsuqg conjugate vaccine, 13 valentColleen Khan MD Work Phone: [phone]-[facility] HospitalsVakcyq40-75-8705emnrzgbxff vaccine, inactivatedColleen Khan MD Work Phone: [phone]-[facility] HospitalsObqnqj81-07-0331fzwgmgwkey, tetanus toxoids and acellular pertussis vaccineColleen Khan MD Work Phone: [phone]-[facility]Point HospitalsEvehye97-45-7717xoypwlxau B vaccine, unspecified formulationColleen Khan MD Work Phone: [phone]-[facility] HospitalsLvcawb46-16-1858jcjbxubejuzw conjugate vaccine, 13 valentColleen Khan MD Work Phone: [phone]-[facility] HospitalsEmelox24-74-7428fnmaawbqel vaccine, inactivatedColleen Khan MD Work Phone: [phone]-[facility] Payers DatePayer CategoryPayerPolicy [id number] MUTUAL MMO SUPERMED [id number] 2022-Present [phone] [address] [place], [place] [id number] [id number] 2..840.1.376858.3.57[id number] 2.16.840.1.032368.3.57[id number] 2..840.1.150991.3.57[id number] 2.16.840.1.925781.3.57[id number] Social History DateTypeDetailFacilityStart: 09-11-2023 End: 02-91-8440Tmfkzmm smoking status NHISNever smoked tobaccoRappahannock General HospitalDizmo [facility] HospitalHuman Network Labs [facility] HospitalStart: 09-11-2023 End: 28-62-5135Fadnoqz use and exposureSmokeless tobacco non-userMartin Memorial Hospital [employer] Systems SystemStart: 07-01-2024 End: 17-29-7422Ukavfyink beverage intakeCurrent non-drinker of alcohol (finding) [facility] HospitalOonyJohnston Memorial HospitalStart: 07-01-2024 End: 84-47-3270Lfakzfw of Social functionRappahannock General HospitalDizmo [facility] HospitalHuman Network Labs [facility] HospitalStart: 07-01-2024 End: 27-81-7257Ljqxyqf use panelAugusta HealthHow hard is it for you to pay for the very basics like food, housing, medical care, and heatingNot hard at allAugusta Health(I/We) worried whether (my/our) food would run out before (I/we) got money to buy more.Never trueRappahannock General HospitalDizmo [facility] HospitalStart: 93-10-1316Mfj assigned at birthNot on fileProUab Medical West LoudCloud Systems SystemStart: 21-03-7196Hoovfcr intakeLifetime non-drinker (finding)ProMedic LoudCloud Systems SystemHas the electric, gas, oil, or water company threatened to shut off services in your home in past 12MoNoBon [facility] W[employer] My Tags [facility] HospitalStart: 87-23-4836RdhLnjopq (finding)[facility] History of Present illness Narrative 09-11-2023 Note Date & MfgpQdgoHbizehqk38-41-2755 History of Present illness Narrative* Pascale Wolf, [employer] - 09/11/2023 9:40 AM EDT Subjective Patient ID: Sherri Mata is a [...] at least twice weekly and at least oncethe police needed to intervene when it took more than an hour to calm her and she became so loud and abusive and she was breaking everything Her angry outbursts have kept her from getting a job and/or keeping a job, she did work at [employer] but her outbursts cost her the position Has great difficulty sleeping, will stay up for long periods of time without needing sleep then crashes Her father has severe mental health issues She has threatened once to harm herself in a fit of rage but otherwise has never harmed herself nordoes she feel any desire to harm herself and only expresses desire to harm others when in a rage She does have menstrual cramps she manages with ibuprofen, her periods are regular, her partner is female The following portions of the patient's history were reviewed and updated as appropriate: allergies, current medications, past family history, past medical history, past social history, past surgicalhistory, problem list, and medication reconciliation was completed including current medication andpost discharge medication. Review of Systems Constitutional: Negative. HENT: Negative. Eyes: Negative. Cardiovascular: Negative. Gastrointestinal: Negative. Endocrine: Negative. Genitourinary: Positive for menstrual problem (cramps). Allergic/Immunologic: Negative. Neurological: Negative. Hematological: Negative. Psychiatric/Behavioral: Positive for agitation, behavioral problems and sleep disturbance. Negativefor hallucinations, self-injury and suicidal ideas. The patient is nervous/anxious. Objective Physical Exam Vitals and nursing note reviewed. Exam conducted with a customs brokerage agent present (mother). Constitutional: Appearance: Normal appearance. HENT: [...] Future Bipolar 1 disorder with moderate yi ([facility]) - Ambulatory referral to [...] this is a good place to start andwouldn't want to offer any medication anyway without more insight into her diagnosis, problems and what would be appropriate as previously her medications seemed to have been poorly managed and she was very sedated and gained a lot of weight and this isn't agreeable to either Sherri or her mother Will try [facility] in [place] for counseling DULCE Mathews 09/11/23 1229 [facility] Note Date & TypeNoteFacilityEvaluation note* Diagnosis Vulvovaginal candidiasis Candidiasis of vulva and vagina documented in this encounter [facility] Evaluation note Note Date & TypeNoteFacilityEvaluation note* Diagnosis Autism spectrum disorder- Primary Autistic disorder, current or active state Bipolar 1 disorder with moderate yi ([facility]) documented in this encounter [facility] Evaluation note Note Date & TypeNoteFacilityEvaluation note* Diagnosis Routine screening for STI (sexually transmitted infection) Screening examination for venereal disease documented in this encounter [facility] Instructions Note Date & TypeNoteFacilityInstructionsNot on filedocumented in this encounter [facility] Reason for referral (narrative) Note Date & TypeNoteFacilityReason for referral (narrative)* Consultation (Routine) - Pending ReviewSpecialtyDiagnoses / ProceduresReferred By Contact Referred To Contact Diagnoses Autism spectrum disorder Bipolar 1 disorder with moderate yi ([facility]) Pascale Wolf APRN-FNP [address] [place] [address] Referral IDStatusReasonStart DateExpiration DateVisits RequestedVisits [id number] Review/511 [facility] Summary Purpose Family History No Family History Records FoundNo Family History Records FoundNo Family History Records Found Advance Directives No Advanced Directives Records FoundNo Advanced Directives Records FoundNo Advanced Directives Records Found Additional Source Comments INFORMATION SOURCE (unrecogn ized section and content) DATE CREATED AUTHOR 10/08/2021 [facility] DATE CREATED AUTHOR AUTHOR'S ORGANIZ ATION 02/23/2024 [facility] DATE CREATED AUTHOR AUTHOR'S ORGANIZ ATION 11/12/2024 [facility] Care Teams (unrecognized sec tion and content) Team MemberRelationshipSpecialtyStart DateEnd Date Colleen Khan MD PCP - GeneralPediatric08/19/11Team MemberRelationshipSpecialtyStart DateEnd Date Colleen Khan MD PCP - GeneralPediatrics2 Reason for Visit (unrecogniz ed section and content) ReasonCommentsNew Patient FOR RECORDS PERTAINING TO PATIENTS WHO [...] BE BASED ON THE PRIMARY CLINICAL RECORDS. [facility]. provides no warranty or guarantee of the accuracy or completeness of information in this document.
[2025-05-02 12:31] LABS: Hematocrit 42.3 % (36.0-48.0); Hemoglobin 14.6 g/dL (12.0-16.0); Immature Granulocytes Abs Auto 0.01 10^3/uL (0.00-0.03); Immature Granulocytes Pct Auto 0.1 % (0.0-0.5); Lymphocytes Absolute Auto 1.5 10^3/uL (1.2-3.8); Mean Corpuscular HGB Conc 34.5 g/dL (29.9-35.2); Mean Corpuscular Hemoglobin 29.3 pg (26.7-34.0); Mean Corpuscular Volume 84.8 fL (81.0-99.0); Platelet Count 351 10^3/uL (150-450); Red Blood Count 4.99 10^6/uL (4.20-5.40); White Blood Count 8.2 10^3/uL (4.0-11.0)
[2025-05-02 12:49] LABS: Alanine Aminotransferase 29 U/L (14-59); Albumin Globulin Ratio 1.2; Albumin Level 4.3 g/dL (3.4-5.0); Alkaline Phosphatase 45 U/L (46-116); Anion Gap 14.7; Aspartate Amino Transferase 16 U/L (15-37); Blood Urea Nitrogen 14.0 mg/dL (7.0-18.0); Calcium 9.2 mg/dL (8.5-10.1); Carbon Dioxide 23.2 mmol/L (21.0-32.0); Chloride 106 mmol/L (98-107); Estimated GFR (African America >60 (>=60 mL/min/1.73m^2); Estimated GFR (Non-African Ame >60 (>=60 mL/min/1.73m^2); Globulin 3.6 g/dL; Glucose 104 mg/dL (74-106); Potassium 3.9 mmol/L (3.5-5.1); Sodium 140 mmol/L (136-145); Total Protein 7.9 g/dL (6.4-8.2)
--- NOTE | 2025-05-02 13:16 | CT_ITS ---
The [address] [address] Patient Name: GAVI HOLLIS MRN: [id number] date: 2005 Sex: F Assigned Patient Location: ER Current Patient Location: ER Accession/Order Number: [id number] Exam Date: 05/02/2025 13:24 Report Date: 05/02/2025 13:39 At the request of: CHAU KNIGHT Procedure: CT head/brain wo con CT BRAIN WITHOUT CONTRAST: CLINICAL HISTORY: 1st time seizure, ANDERSON, Dizzy, Nausea COMPARISON: None TECHNIQUE: Contiguous axial unenhanced images were obtained through the brain. This CT exam was performed using one or more following dose reduction techniques: Automated exposure control, adjustment of the mA and/or kV according to patient size, or use of iterative reconstruction technique. FINDINGS: There is no evidence of midline shift, intra or extra-axial fluid collection, hemorrhage or CT evidence of acute large vascular distribution stroke. Visualized intraorbital contents appear unremarkable. Visualized paranasal sinuses are clear. The surrounding soft tissues are normal. CT/CT head/brain wo con IMPRESSION: NO ACUTE INTRACRANIAL ABNORMALITY. Impression dictated by: Sva Cruz M.D. 05/02/2025 1:39 PM Dictation Location: [place] [address] Electronically authenticated by: [id number] Y Date: 05/02/2025 13:39
--- NOTE | 2025-05-02 13:23 | ED.GENADUL1 ---
HPI HPI - General Adult General Chief complaint: Nausea/Vomiting/Diarrhea Stated complaint: VOMITING DIZZINESS Time Seen by Provider: 05/02/25 11:55 Source: patient and friend Mode of arrival: Wheelchair Limitations: no limitations History of Present Illness HPI narrative: Patient is a 20-year-old female that presents to the emergency department with complaints of multiple episodes of vomiting, headache, dizziness, and cold chills. She denies any recent illness, nasal congestion, runny nose, cough, shortness of breath, chest pain. She is having more frequent bowel movements but they are not loose stools. She is having some sharp periumbilical abdominal pain. She states the symptoms happened last week immediately after eating a shrimp dinner at a [employer] restaurant. Her partner at bedside provides some of the history and states that while she was vomiting in the bathroom she had fell to the floor, lost consciousness, and started having jerking movements. She does not have a history of seizure nor has ever had one before. She also denies history of migraine. Related Data Home Medications ?Medication ?Instructions ?Recorded ?Confirmed norethindrone 1 mg-ethinyl tab 08/05/24 estradiol 20 mcg (21)-iron 75 mg (7) tablet (Karyn Fe 07/15 (28)) Previous Rx's ?Medication ?Instructions ?Recorded methylprednisolone 4 mg tablets in 4 mg PO DAILY #21 ea 12/21/24 a dose pack (Medrol (Dilip)) ondansetron 4 mg disintegrating 4 mg PO Q6H PRN nausea and 05/02/25 tablet vomiting #14 tabs Allergies Allergy/AdvReac Type Severity Reaction Status Date / Time No Known Drug Allergies Allergy Verified 05/02/25 12:02 Opioid HPI Opioid Management Most Recent Opioid Data: Last Pain Scale 6 Today, 13:56 Last MAR Pain Assessment Today, 13:56 Review of Systems ROS Status of ROS 10 or more systems reviewed and unremarkable except as noted in history and below PFSH PFSH Social History Smoking status: Current some day smoker Little interest or pleasure in doing things: not at all Feeling down, depressed, or hopeless: not at all Exam Narrative Exam Narrative: General: No distress, age-appropriate Skin: Warm, dry, no pallor. No rash. Head: Normocephalic, atraumatic. Neck: Supple, non-tender. Eye: Pupils are equal, round and EOMI. No scleral icterus. Ears, Nose, Mouth, and Throat: No nasal mucosal hypertrophy. Oral mucosa is moist, no posterior oropharynx erythema, uvula is mid-line Cardiovascular: Regular Rate and Rhythm without murmur, gallop or rub. Respiratory: No accessory muscle use or respiratory distress. Lungs are clear to auscultation, no wheezing, rales or rhonchi Chest Wall: no tenderness Musculoskeletal: Full ROM of all extremities, no calf or popliteal tenderness GI: Abdomen is soft, non-distended, mildly tender to palpation periumbilical area. No masses appreciated. No rebound, guarding, or rigidity noted. Neurological: A&O x4. No cranial nerve dysfunction observed. No truncal ataxia. Moves all extremities. Sensation intact. Psychiatric: Cooperative and interactive. Normal mood and affect. Constitutional Vital Signs, click to edit/add: Last Vital Signs Temp 97.7 F 05/02/25 12:02 Pulse 56 L 05/02/25 14:20 Resp 18 05/02/25 14:20 BP 113/74 05/02/25 14:01 Pulse Ox 99 05/02/25 12:02 O2 Del Method Room Air 05/02/25 12:02 Course Vital Signs Vital signs: Vital Signs Temperature 97.7 F 05/02/25 12:02 Pulse Rate 57 L 05/02/25 12:02 Respiratory Rate 28 H 05/02/25 12:02 Blood Pressure 140/82 05/02/25 12:02 Pulse Oximetry 99 05/02/25 12:02 Oxygen Delivery Method Room Air 05/02/25 12:02 Temperature 97.7 F 05/02/25 12:02 Pulse Rate 56 L 05/02/25 14:20 Respiratory Rate 18 05/02/25 14:20 Blood Pressure 113/74 05/02/25 14:01 Pulse Oximetry 99 05/02/25 12:02 Oxygen Delivery Method Room Air 05/02/25 12:02 Medical Decision Making [facility] Narrative Medical decision making narrative: 20-year-old female presents with vomiting, dizziness, chills, and one episode of loss of consciousness with reported jerking movements after vomiting 1 week ago when she had similar symptoms. No prior seizure history. Exam unremarkable. Patient alert and oriented without focal neurologic deficits. Differential included: foodborne illness, dehydration, electrolyte disturbance, vasovagal syncope, new-onset seizure, intracranial process, metabolic abnormality, and cardiac dysrhythmia. Workup: CBC, CMP, lipase all within normal limits. Hcg negative. UA negative for infection or dehydration. EKG normal sinus rhythm, no QT prolongation or arrhythmia. Head CT negative for acute findings. No metabolic or structural cause identified. Given the normal workup and clinical picture, the episode of ?jerking? in the setting of vomiting is most consistent with convulsive (vasovagal) syncope secondary to emesis. No evidence of true seizure, metabolic derangement, infection, or intracranial pathology. Patient was treated symptomatically with IV fluids, ondansetron, and ketorolac with significant improvement in headache and nausea. She tolerated oral fluids and ambulated without dizziness prior to discharge. Prescription for Zofran sent to pharmacy. Return precautions discussed for any new or worsening symptoms. Neurology referral placed in discharge instructions for patient to call and follow up. Patient was discharged in stable condition with appropriate follow-up. Differential Diagnosis Differential Diagnosis: Foodborne illness, Dehydration, Electrolyte disturbance, Vasovagal syncope Lab Data Lab results reviewed: Yes I reviewed the patient's lab results Labs: Lab Results 05/02/25 05/02/25 Range/Units 12:15 14:00 WBC 8.2 (4.0-11.0) 10^3/uL RBC 4.99 (4.20-5.40) 10^6/uL Hgb 14.6 (12.0-16.0) g/dL Hct 42.3 (36.0-48.0) % MCV 84.8 (81.0-99.0) fL MCH 29.3 (26.7-34.0) pg MCHC 34.5 (29.9-35.2) g/dL RDW 12.0 (11.0-15.0) % Plt Count 351 (150-450) 10^3/uL MPV 9.5 (9.5-13.5) fL Neut % (Auto) 74.7 (43.0-75.0) % Lymph % (Auto) 18.1 L (20.5-60.0) % Medina % (Auto) 5.5 (1.7-12.0) % Eos % (Auto) 1.1 (0.9-7.0) % Baso % (Auto) 0.5 (0.2-2.0) % Neut # (Auto) 6.1 (1.4-6.5) 10^3/uL Lymph # (Auto) 1.5 (1.2-3.8) 10^3/uL Medina # (Auto) 0.5 (0.3-0.8) 10^3/uL Eos # (Auto) 0.1 (0.0-0.7) 10^3/uL Baso # (Auto) 0.0 (0.0-0.1) 10^3/uL Abs Immat Gran (auto) 0.01 (0.00-0.03) 10^3/uL Imm/Tot Granulo (auto) 0.1 (0.0-0.5) % Sodium 140 (136-145) mmol/L Potassium 3.9 (3.5-5.1) mmol/L Chloride 106 (98-107) mmol/L Carbon Dioxide 23.2 (21.0-32.0) mmol/L Anion Gap 14.7 BUN 14.0 (7.0-18.0) mg/dL Creatinine 0.76 (0.55-1.02) mg/dL Est GFR ( Amer) >60 (>=60 mL/min/1.73m^2) Est GFR (Non-Af Amer) >60 (>=60 mL/min/1.73m^2) BUN/Creatinine Ratio 18.4 Glucose 104 (74-106) mg/dL Calcium 9.2 (8.5-10.1) mg/dL Total Bilirubin 0.3 (0.2-1.0) mg/dL AST 16 (15-37) U/L ALT 29 (14-59) U/L Alkaline Phosphatase 45 L (46-116) U/L Total Protein 7.9 (6.4-8.2) g/dL Albumin 4.3 (3.4-5.0) g/dL Globulin 3.6 g/dL Albumin/Globulin Ratio 1.2 Lipase 47.0 (16.0-77.0) U/L Serum HCG, Qual Negative (NEGATIVE) Urine Color Lt. yellow (YELLOW) Urine Clarity Clear (CLEAR) Urine pH 7.5 (5.0-9.0) Ur Specific [place] 1.020 (1.005-1.025) Urine Protein Negative (NEG/TRACE) mg/dL Urine Glucose (UA) Negative (NEGATIVE) mg/dL Urine Ketones 15 A (NEGATIVE) mg/dL Urine Occult Blood Negative (NEGATIVE) Urine Nitrite Negative (NEGATIVE) Urine Bilirubin Negative (NEGATIVE) Urine Urobilinogen 0.2 (0.2-1.0) EU/dL Ur Leukocyte Esterase Negative (NEGATIVE) Imaging Data CT scan - head: Attestation: I have reviewed the pertinent imaging results. Radiologist's impression: ITS Impressions Head CT 05/02/25 13:16 IMPRESSION: NO ACUTE INTRACRANIAL ABNORMALITY. Impression dictated by: Sav Cruz M.D. 05/02/2025 1:39 PM Dictation Location: [place] [address] Electronically authenticated by: [id number] Y Date: 05/02/2025 13:39 ECG Data Attestation: ?I have reviewed the pertinent ECG results. Discharge Plan Discharge Chief Complaint: Nausea/Vomiting/Diarrhea Clinical Impression: Nausea & vomiting Patient Disposition: Home, Self-Care Time of Disposition Decision: 14:28 Condition: Good Mode of Transportation: Private Vehicle Prescriptions / Home Meds: New ondansetron 4 mg tablet,disintegrating 4 mg PO Q6H PRN (Reason: nausea and vomiting) Qty: 14 0RF No Action norethindrone-e.estradiol-iron [Karyn Fe 07/15 ()] 1 mg-20 mcg (21)/75 mg (7) tablet methylprednisolone [Medrol (Dilip)] 4 mg tablets,dose pack 4 mg PO DAILY Qty: 21 0RF Rx Instructions: take as directed for 6 days. Print Language: Wolof Instructions: Acute Nausea and Vomiting (ED) Additional Instructions: Follow up with Neurology for the seizure activity, Referral provided, Follow up with your family DR and return to ER for any problems or concerns. Referrals: Patricio Dimas DO [Physician, Neurology] - As soon as possible Physician,Non-Staff, MD [Primary Care Provider] - 1 week Discharge Date/Time: 05/02/25 14:48
[2025-05-02 13:41] LABS: Lipase 47.0 U/L (16.0-77.0)
[2025-05-02] MEDS: KETOROLAC TROMETHAMINE 30 MG/ML VIAL IVP (13:56)
[2025-05-02 14:08] LABS: Glucose Urine UA NEGATIVE (NEGATIVE)
--- NOTE | 2025-05-02 14:47 | PC.NURSE ---
no vomiting while this nurse had pt in ER
== END 2025-05-02 14:48 | disposition home or self-care (01) ==
PROVIDERS: Physician Assistant; Emergency Provider Student in an Organized Health Care Education/Training Program
DX: R11.2 Nausea with vomiting, unspecified (principal); F17.200 Nicotine dependence, unspecified, uncomplicated
CPT/HCPCS: 36415; 70450; 80053; 81003; 83690; 84703; 85025; 93005; 96361; 96374; 96375; 96376; 99285; J1885; J2405